=== PATIENT | male | born 1945 | race Caucasian/White ===

== ENCOUNTER 2021-03-02 15:40 | Emergency (ER) | payer OTHER, MEDICARE ==
[~2021-03-02] VITALS: Ht 162.6 cm; Wt 60.1 kg
[2021-03-02] MEDS ORDERED: NORCO, ANEXSIA 5/325MG TABLET (HYDROcodone/ACETAMINOPHEN) PO ONE (17:35)
--- NOTE | 2021-03-02 18:12 | REP ---
INDICATION: fell 3 wks ago/back pain COMPARISON: None. TECHNIQUE: AP, lateral, bilateral oblique, and coned-down views of the lumbar spine. FINDINGS: Evidence for prior laminectomy and posterior fixation at L3-S1. Advanced multilevel degenerative changes are appreciated. No obvious acute fracture/compression injury or subluxation. IMPRESSION: Advanced degenerative changes and prior laminectomy/fixation. No acute fracture/compression injury or subluxation appreciated. <Electronically signed by Delbert Araya > 03/02/21 [id number]
--- NOTE | 2021-03-02 18:13 | REP ---
INDICATION: fell 3 wks ago/hip pain Nontraumatic hip pain. COMPARISON: None. TECHNIQUE: Frontal view of the pelvis with neutral and frog lateral views of the right hip. FINDINGS: Age-related osteopenia and degenerative changes are appreciated. No obvious acute fracture or dislocation identified. IMPRESSION: No acute fracture or dislocation. <Electronically signed by Delbert Araya > 03/02/21 [id number]
[2021-03-02 21:27] LABS: BASO % 0.3 % (0.0-1.0); EOS # 0.3 10^3/uL (0.0-0.5); EOS % 3.7 % (0.0-3.0); HEMOGLOBIN 13.9 g/dl (13.5-17.5); LYMPH # 1.3 10^3/uL (1.5-5.0); LYMPH % 17.2 % (24.0-44.0); MEAN CORPUSCULAR HEMOGLOBIN 29.2 pg (27.0-33.0); MEAN CORPUSCULAR HGB CONC 33.9 g/dl (32.0-36.5); MEAN CORPUSCULAR VOLUME 86.1 fl (80.0-96.0); MONO # 0.6 10^3/uL (0.0-0.8); MONO % 7.6 % (2.0-8.0); NEUTROPHILS # 5.4 10^3/uL (1.5-8.5); NEUTROPHILS % 70.8 % (36.0-66.0); PLATELET COUNT, AUTOMATED 187 10^3/uL (150-450); RED BLOOD COUNT 4.76 10^6/uL (4.30-6.10); WHITE BLOOD COUNT 7.6 10^3/uL (4.0-10.0)
[2021-03-02 21:40] LABS: ALBUMIN 3.4 GM/DL (3.2-5.2); ALT/SGPT 27 U/L (12-78); BILIRUBIN,DIRECT < 0.1 MG/DL (0.0-0.2); BILIRUBIN,TOTAL 0.3 MG/DL (0.2-1.0); BLOOD UREA NITROGEN 14 MG/DL (7-18); CALCIUM LEVEL 9.2 MG/DL (8.8-10.2); CARBON DIOXIDE LEVEL 29 MEQ/L (21-32); CHLORIDE LEVEL 106 MEQ/L (98-107); CREATININE FOR GFR 0.85 MG/DL (0.70-1.30); GLOMERULAR FILTRATION RATE > 60.0 (>42); GLUCOSE, FASTING 118 MG/DL (70-100); LIPASE 304 U/L (73-393); SODIUM LEVEL 139 MEQ/L (136-145); TOTAL PROTEIN 6.5 GM/DL (6.4-8.2)
[2021-03-02 22:22] VITALS: BP 151/89
== END 2021-03-02 22:26 | disposition home or self-care (01) ==
LOC: M ED 15:40
DX: M54.5 Low back pain (principal); M85.851 Other specified disorders of bone density and structure, right thigh; M51.37 Other intervertebral disc degeneration, lumbosacral region; E11.9 Type 2 diabetes mellitus without complications; I10 Essential (primary) hypertension; J45.909 Unspecified asthma, uncomplicated; Z79.899 Other long term (current) drug therapy

== ENCOUNTER → 2021-04-14 | Outpatient (CLI) | payer OTHER ==
[~2021-04-14] MED LIST: ATOR1TAB19 PO; DONE10TA90 PO; ECOT81TA5 PO; FAMO20TA PO; LANTINJ4 SC; LIDO1PAD TOP; LISI40TA4 PO; MELO15TA28 PO; MM S100C PO; QC A650T3 PO; VITMTA PO; ZOLO100T PO
== END ==
LOC: M LABSMTC 11:50
PROVIDERS: ATTEND Anesthesiology
DX: Z01.812 Encounter for preprocedural laboratory examination (principal); Z20.822 Contact with and (suspected) exposure to COVID-19

== ENCOUNTER 2021-04-19 13:19 | Day surgery (SDC) | payer OTHER ==
[~2021-04-19] VITALS: Ht 157.5 cm; Wt 58.2 kg
[~2021-04-19 13:19] MED LIST changes: +LIDOCAINE 1% MDV 20ML VIAL SQ PRN; +LIDOCAINE 2% 100MG/5ML SDV (FOR ANES.) As Ordered ONE; +LR 1,000 ML IV ONE; +propofoL 200 MG/20 ML VIAL As Ordered ONE
[2021-04-19] MEDS ORDERED: propofoL 200 MG/20 ML VIAL As Ordered ONE (14:33)
[2021-04-19] MEDS ORDERED: LIDOCAINE 2% 100MG/5ML SDV (FOR ANES.) As Ordered ONE (14:33)
[2021-04-19] MEDS ORDERED: fentaNYL 100 MCG/2 ML INJECTION (J3010) As Ordered ONE (14:34)
--- NOTE | 2021-04-19 14:57 | ROOR ---
Patient Name: Margarito Chávez Procedure Date: 04/19/2021 2:27 PM Date of : 1945 Age: 75 Room: [facility] Gender: Male Note Status: Finalized Procedure: Upper GI endoscopy Indications: Dysphagia Providers: Taco Messina MD Referring MD: [facility], Admin. Requesting Provider: Medicines: Monitored Anesthesia Care Complications: No immediate complications. Procedure: Pre-Anesthesia Assessment: - Prior to the procedure, a History and Physical was performed, and patient medications and allergies were reviewed. The patient is competent. The risks and benefits of the procedure and the sedation options and risks were discussed with the patient. All questions were answered and informed consent was obtained. Patient identification and proposed procedure were verified by the physician, the nurse and the anesthesiologist in the procedure room. Mental Status Examination: alert and oriented. Airway Examination: normal oropharyngeal airway and neck mobility. Respiratory Examination: clear to auscultation. CV Examination: normal. Prophylactic Antibiotics: The patient does not require prophylactic antibiotics. Prior Anticoagulants: The patient has taken no previous anticoagulant or antiplatelet agents. ASA Grade Assessment: II - A patient with mild systemic disease. After reviewing the risks and benefits, the patient was deemed in satisfactory condition to undergo the procedure. The anesthesia plan was to use monitored anesthesia care (MAC). Immediately prior to administration of medications, the patient was re-assessed for adequacy to receive sedatives. The heart rate, respiratory rate, oxygen saturations, blood pressure, adequacy of pulmonary ventilation, and response to care were monitored throughout the procedure. The physical status of the patient was re-assessed after the procedure. The Endoscope was introduced through the mouth, and advanced to the second part of duodenum. The upper GI endoscopy was accomplished without difficulty. The patient tolerated the procedure well. Findings: LA Grade C (one or more mucosal breaks continuous between tops of 2 or more mucosal folds, less than 75% circumference) esophagitis with no bleeding was found in the lower third of the esophagus. Biopsies were taken with a cold forceps for histology. Verification of patient identification for the specimen was done by the physician and nurse using the patient's name, date and medical record number. Estimated blood loss was minimal. One benign-appearing, intrinsic moderate (circumferential scarring or stenosis; an endoscope may pass) stenosis was found in the lower third of the esophagus. This stenosis measured 1 cm (inner diameter) x 3 cm (in length). The stenosis was traversed. A TTS dilator was passed through the scope. Dilation with a 15-16.5-18 mm balloon dilator was performed to 15 mm. The dilation site was examined following endoscope reinsertion and showed mild mucosal disruption, moderate improvement in luminal narrowing, no bleeding and no perforation. Scattered moderate inflammation characterized by erythema and granularity was found in the gastric antrum. Biopsies were taken with a cold forceps for Helicobacter pylori testing. The duodenal bulb and second portion of the duodenum were normal. Impression: - LA Grade C reflux esophagitis. Rule out Hussein's esophagus. Biopsied. - Benign-appearing esophageal stenosis. Dilated. - Gastritis. Biopsied. - Normal duodenal bulb and second portion of the duodenum. Recommendation: - Patient has a contact number available for emergencies. The signs and symptoms of potential delayed complications were discussed with the patient. Return to normal activities tomorrow. Written discharge instructions were provided to the patient. - Clear liquid diet today, then advance as tolerated to chopped diet and mechanical soft diet. - Continue present medications. - Use Protonix (pantoprazole) 40 mg PO twice daily - to be taken in morning (1/2 hour before breakfast) and at bedtime ( atleast 3 hours after last meal) for 6 weeks. - Use sucralfate suspension 1 gram PO QID for 4 weeks. - Repeat upper endoscopy in 1 year to evaluate the response to therapy, for retreatment and depending on the symptoms and clinical response. - Return to GI clinic if persistent symptoms or new symptoms. - Telephone GI clinic for pathology results in 2 weeks. - Return to primary care physician. Procedure Code(s): --- Professional --- 50151, Esophagogastroduodenoscopy, flexible, transoral; with transendoscopic balloon dilation of esophagus (less than 30 mm diameter) 07327, 59, Esophagogastroduodenoscopy, flexible, transoral; with biopsy, single or multiple Diagnosis Code(s): --- Professional --- K21.0, Gastro-esophageal reflux disease with esophagitis K22.2, Esophageal obstruction K29.70, Gastritis, unspecified, without bleeding R13.10, Dysphagia, unspecified CPT copyright 2019 [employer]. All rights reserved. The codes documented in this report are preliminary and upon bronze chaser review may be revised to meet current compliance requirements. Taco Messina MD Taco Messina MD 04/19/2021 2:57:14 PM Electronically signed by Taco Messina MD Number of Addenda: 0 Note Initiated On: 04/19/2021 2:27 PM Estimated Blood Loss: Estimated blood loss was minimal.
[2021-04-19 15:15] VITALS: BP 137/83
== END 2021-04-19 15:40 | disposition home or self-care (01) ==
LOC: M SDC 13:19
PROVIDERS: ATTEND Internal Medicine Gastroenterology
DX: R13.10 Dysphagia, unspecified (principal); K21.00 Gastro-esophageal reflux disease with esophagitis, without bleeding; K22.2 Esophageal obstruction; K29.70 Gastritis, unspecified, without bleeding; I10 Essential (primary) hypertension; E78.5 Hyperlipidemia, unspecified; Z79.899 Other long term (current) drug therapy; E11.9 Type 2 diabetes mellitus without complications; Z79.4 Long term (current) use of insulin
CPT/HCPCS: 43239; 43249; 88305; J3010

== ENCOUNTER 2021-07-20 00:30 | Emergency (ER) | payer OTHER ==
[~2021-07-20] VITALS: Ht 167.6 cm; Wt 59.1 kg
[~2021-07-20 00:30] MED LIST changes: -LIDOCAINE 1% MDV 20ML VIAL SQ PRN; -LIDOCAINE 2% 100MG/5ML SDV (FOR ANES.) As Ordered ONE; -LR 1,000 ML IV ONE; -propofoL 200 MG/20 ML VIAL As Ordered ONE
[2021-07-20 00:58] VITALS: BP 183/86
== END 2021-07-20 03:12 | disposition home or self-care (01) ==
LOC: M ED 00:30
DX: S01.01XA Laceration without foreign body of scalp, initial encounter (principal); I10 Essential (primary) hypertension; E11.9 Type 2 diabetes mellitus without complications; Z79.899 Other long term (current) drug therapy; Z79.4 Long term (current) use of insulin; Z86.59 Personal history of other mental and behavioral disorders; W00.0XXA Fall on same level due to ice and snow, initial encounter; Y92.009 Unspecified place in unspecified non-institutional (private) residence as the place of occurrence of the external cause; Y93.9 Activity, unspecified; Y99.9 Unspecified external cause status

== ENCOUNTER 2021-11-12 10:31 | Emergency (ER) | payer OTHER ==
[~2021-11-12] VITALS: Ht 170.2 cm; Wt 57.6 kg
[2021-11-12] MEDS ORDERED: BOOSTRIX/ADACEL VACCINE (DIPHTH/PERTUSS/ACELL/TETANUS) 0.5ML SYR IM ONE (11:45)
[2021-11-12] MEDS ORDERED: DERMABOND TOPICAL SKIN ADHESIVE TOP ONE (11:45)
[2021-11-12 13:24] VITALS: BP 160/80
== END 2021-11-12 14:26 | disposition home or self-care (01) ==
LOC: M ED 10:31
DX: S00.01XA Abrasion of scalp, initial encounter (principal); S60.811A Abrasion of right wrist, initial encounter; S01.419A Laceration without foreign body of unspecified cheek and temporomandibular area, initial encounter; S80.212A Abrasion, left knee, initial encounter; R94.31 Abnormal electrocardiogram [ECG] [EKG]; F03.90 Unspecified dementia, unspecified severity, without behavioral disturbance, psychotic disturbance, mood disturbance, and anxiety; I10 Essential (primary) hypertension; J45.909 Unspecified asthma, uncomplicated; E11.9 Type 2 diabetes mellitus without complications; M54.50 Low back pain, unspecified; Y92.009 Unspecified place in unspecified non-institutional (private) residence as the place of occurrence of the external cause; Y93.9 Activity, unspecified; Y99.9 Unspecified external cause status; Z79.811 Long term (current) use of aromatase inhibitors; Z79.4 Long term (current) use of insulin

== ENCOUNTER → 2022-02-17 | Outpatient (CLI) | payer OTHER | LOC: M RAD 10:27 | PROVIDERS: ATTEND Nurse Practitioner Family | DX: E04.1 Nontoxic single thyroid nodule (principal) ==

== ENCOUNTER 2022-05-11 16:23 | Inpatient (IN) | payer OTHER, MEDICAID ==
[~2022-05-11] VITALS: Ht 172.7 cm; Wt 59.1 kg
[2022-05-11 19:03] LABS: HEMATOCRIT 44.2 % (42.0-52.0); HEMOGLOBIN 14.7 g/dl (13.5-17.5); MEAN CORPUSCULAR HEMOGLOBIN 28.2 pg (27.0-33.0); MEAN CORPUSCULAR HGB CONC 33.3 g/dl (32.0-36.5); MEAN CORPUSCULAR VOLUME 84.8 fl (80.0-96.0); PLATELET COUNT, AUTOMATED 215 10^3/uL (150-450); RED BLOOD COUNT 5.21 10^6/uL (4.30-6.10)
[2022-05-11 20:14] LABS: AMPHETAMINES LEVEL URINE NEGATIVE (NEGATIVE); BARBITURATES URINE NEGATIVE (NEGATIVE); BENZODIAZEPINES URINE NEGATIVE (NEGATIVE); CANNABINOIDS URINE NEGATIVE (NEGATIVE); COCAINE METABOLITE URINE NEGATIVE (NEGATIVE); METHADONE URINE NEGATIVE (NEGATIVE); OPIATES URINE NEGATIVE (NEGATIVE); PHENCYCLIDINE URINE NEGATIVE (NEGATIVE)
[2022-05-11] MEDS ORDERED: HOME MED LIST COMPLETE! XX SCH (20:20)
[2022-05-11 20:30] LABS: ACETAMINOPHEN LEVEL < 2.0 UG/ML (10.0-30.0); ALBUMIN 4.2 GM/DL (3.2-5.2); ALKALINE PHOSPHATASE 205 U/L (45-117); ALT/SGPT 28 U/L (12-78); AST/SGOT 17 U/L (7-37); BILIRUBIN,DIRECT 0.1 MG/DL (0.0-0.2); BILIRUBIN,TOTAL 0.4 MG/DL (0.2-1.0); BLOOD UREA NITROGEN 18 MG/DL (7-18); CALCIUM LEVEL 10.2 MG/DL (8.8-10.2); CARBON DIOXIDE LEVEL 28 MEQ/L (21-32); CHLORIDE LEVEL 100 MEQ/L (98-107); CREATININE FOR GFR 1.04 MG/DL (0.70-1.30); ETHYL ALCOHOL (ETHANOL) 0.003 % (0.000-0.010); GLOMERULAR FILTRATION RATE > 60.0 (>42); GLUCOSE, FASTING 241 MG/DL (70-100); SALICYLATE LEVEL < 1.7 MG/DL (5.0-30.0); SODIUM LEVEL 135 MEQ/L (136-145)
[2022-05-11 22:28] LABS: RSV AMPLIFICATION NEGATIVE (NEGATIVE)
[2022-05-11 22:30] LABS: CK-MB VALUE MASS 2.2 NG/ML (<3.6); MB/CK RELATIVE INDEX 3.19 (< OR =4)
[2022-05-12] MEDS ORDERED: GLUCAGON INJ 1MG VIAL SC PRN (02:10)
[2022-05-12] MEDS ORDERED: GLUCOSE 4GM CHEW TABLET PO PRN (02:10)
[2022-05-12] MEDS ORDERED: DEXTROSE 50% 50 ML SYRINGE IV PRN (02:10)
[2022-05-12 03:29] LABS: HEMOGLOBIN A1c 9.9 %
[2022-05-12] MEDS: INSULIN LISPRO (NovoLOG) PER UNIT SC SCH ×4 (07:30→20:21)
[2022-05-12 07:47] LABS: HEMATOCRIT 42.2 % (42.0-52.0); HEMOGLOBIN 13.9 g/dl (13.5-17.5); MEAN CORPUSCULAR HEMOGLOBIN 28.3 pg (27.0-33.0); MEAN CORPUSCULAR HGB CONC 32.9 g/dl (32.0-36.5); MEAN CORPUSCULAR VOLUME 85.8 fl (80.0-96.0); PLATELET COUNT, AUTOMATED 177 10^3/uL (150-450); RED BLOOD COUNT 4.92 10^6/uL (4.30-6.10); WHITE BLOOD COUNT 6.7 10^3/uL (4.0-10.0)
[2022-05-12] MEDS ORDERED: lisinopriL 40MG TAB PO ONE (08:15)
[2022-05-12 08:22] LABS: BLOOD UREA NITROGEN 19 MG/DL (7-18); CALCIUM LEVEL 9.3 MG/DL (8.8-10.2); CARBON DIOXIDE LEVEL 30 MEQ/L (21-32); CHLORIDE LEVEL 104 MEQ/L (98-107); CREATININE FOR GFR 1.05 MG/DL (0.70-1.30); GLOMERULAR FILTRATION RATE > 60.0 (>42); GLUCOSE, FASTING 84 MG/DL (70-100); POTASSIUM SERUM 4.2 MEQ/L (3.5-5.1); SODIUM LEVEL 138 MEQ/L (136-145)
[2022-05-12] MEDS: LEVEMIR (INSULIN DETEMIR) 1 UNITS/0.01ML SC SCH (08:30)
[2022-05-12] MEDS: DOCUSATE SODIUM 100MG CAPSULE PO SCH ×2 (08:30→19:51)
[2022-05-12] MEDS: MELOXICAM (MOBIC) 7.5 MG TAB PO SCH (08:30)
[2022-05-12] MEDS: MULTIVITAMINS/MINERALS THERAP 1 TAB PO SCH (08:30)
[2022-05-12] MEDS: SERTRALINE 100 MG TAB PO SCH (08:30)
[2022-05-12] MEDS: ASPIRIN 81MG ENTERIC TABLET PO SCH (08:31)
[2022-05-12] MEDS: ATORVASTATIN 10 MG TAB PO SCH (08:31)
[2022-05-12] MEDS: FAMOTIDINE 20 MG TAB PO SCH (08:31)
[2022-05-12] MEDS ORDERED: lisinopriL 40MG TAB PO SCH (09:00)
[2022-05-12 11:58] LABS: MAGNESIUM LEVEL 1.9 MG/DL (1.8-2.4)
[2022-05-12 14:00] VITALS: BP 112/80
[2022-05-12] MEDS: DONEPEZIL 5 MG TAB PO SCH (14:01)
[2022-05-12 18:25] LABS: FOLATE > 24.0 NG/ML (>5.4); VITAMIN B12 LEVEL 723 PG/ML (247-911)
[2022-05-12] MEDS ORDERED: QUEtiapine FUMARATE 12.5 MG HALF-TAB PO ONE (19:30)
[2022-05-12] MEDS: RAMELTEON 8 MG TAB (ROZEREM) PO PRN (19:51)
[2022-05-12 20:11] VITALS: BP 115/78
[2022-05-13 06:39] VITALS: BP 102/65
[2022-05-13] MEDS: INSULIN LISPRO (NovoLOG) PER UNIT SC SCH ×6 (07:30→19:58)
[2022-05-13 07:43] LABS: HEMATOCRIT 37.1 % (42.0-52.0); HEMOGLOBIN 12.4 g/dl (13.5-17.5); MEAN CORPUSCULAR HEMOGLOBIN 28.2 pg (27.0-33.0); MEAN CORPUSCULAR HGB CONC 33.4 g/dl (32.0-36.5); MEAN CORPUSCULAR VOLUME 84.5 fl (80.0-96.0); PLATELET COUNT, AUTOMATED 165 10^3/uL (150-450); RED BLOOD COUNT 4.39 10^6/uL (4.30-6.10)
[2022-05-13] MEDS ORDERED: QUEtiapine FUMARATE 12.5 MG HALF-TAB PO PRN (07:45)
[2022-05-13 07:55] LABS: BLOOD UREA NITROGEN 32 MG/DL (7-18); CALCIUM LEVEL 8.6 MG/DL (8.8-10.2); CARBON DIOXIDE LEVEL 26 MEQ/L (21-32); CHLORIDE LEVEL 107 MEQ/L (98-107); CREATININE FOR GFR 1.23 MG/DL (0.70-1.30); GLOMERULAR FILTRATION RATE > 60.0 (>42); GLUCOSE, FASTING 93 MG/DL (70-100); MAGNESIUM LEVEL 1.8 MG/DL (1.8-2.4); POTASSIUM SERUM 4.1 MEQ/L (3.5-5.1); SODIUM LEVEL 140 MEQ/L (136-145)
[2022-05-13] MEDS: LEVEMIR (INSULIN DETEMIR) 1 UNITS/0.01ML SC SCH (09:42)
[2022-05-13] MEDS: ASPIRIN 81MG ENTERIC TABLET PO SCH (09:43)
[2022-05-13] MEDS: SERTRALINE 100 MG TAB PO SCH (09:43)
[2022-05-13] MEDS: MELOXICAM (MOBIC) 7.5 MG TAB PO SCH (09:43)
[2022-05-13] MEDS: DONEPEZIL 5 MG TAB PO SCH (09:43)
[2022-05-13] MEDS: MULTIVITAMINS/MINERALS THERAP 1 TAB PO SCH (09:43)
[2022-05-13] MEDS: FAMOTIDINE 20 MG TAB PO SCH (09:43)
[2022-05-13] MEDS: ATORVASTATIN 10 MG TAB PO SCH (09:43)
[2022-05-13] MEDS: lisinopriL 40MG TAB PO SCH (09:43)
[2022-05-13] MEDS: DOCUSATE SODIUM 100MG CAPSULE PO SCH ×2 (09:43→19:21)
[2022-05-13 14:00] VITALS: BP 131/70
[2022-05-13] MEDS: RAMELTEON 8 MG TAB (ROZEREM) PO PRN (19:21)
[2022-05-13] MEDS: QUEtiapine FUMARATE 12.5 MG HALF-TAB PO PRN (19:21)
[2022-05-13 19:43] VITALS: BP 124/63
[2022-05-14 05:49] VITALS: BP 136/80
[2022-05-14 07:03] LABS: HEMATOCRIT 36.4 % (42.0-52.0); HEMOGLOBIN 11.8 g/dl (13.5-17.5); MEAN CORPUSCULAR HGB CONC 32.4 g/dl (32.0-36.5); MEAN CORPUSCULAR VOLUME 86.3 fl (80.0-96.0); PLATELET COUNT, AUTOMATED 151 10^3/uL (150-450); RED BLOOD COUNT 4.22 10^6/uL (4.30-6.10); WHITE BLOOD COUNT 5.9 10^3/uL (4.0-10.0)
[2022-05-14] MEDS: INSULIN LISPRO (NovoLOG) PER UNIT SC SCH ×4 (07:30→20:16)
[2022-05-14 07:38] LABS: BLOOD UREA NITROGEN 28 MG/DL (7-18); CALCIUM LEVEL 8.8 MG/DL (8.8-10.2); CARBON DIOXIDE LEVEL 25 MEQ/L (21-32); CHLORIDE LEVEL 110 MEQ/L (98-107); CREATININE FOR GFR 0.91 MG/DL (0.70-1.30); GLOMERULAR FILTRATION RATE > 60.0 (>42); GLUCOSE, FASTING 96 MG/DL (70-100); MAGNESIUM LEVEL 1.9 MG/DL (1.8-2.4); POTASSIUM SERUM 4.2 MEQ/L (3.5-5.1); SODIUM LEVEL 141 MEQ/L (136-145)
[2022-05-14] MEDS: ATORVASTATIN 10 MG TAB PO SCH (09:00)
[2022-05-14] MEDS: MELOXICAM (MOBIC) 7.5 MG TAB PO SCH (09:00)
[2022-05-14] MEDS: LEVEMIR (INSULIN DETEMIR) 1 UNITS/0.01ML SC SCH (09:00)
[2022-05-14] MEDS: SERTRALINE 100 MG TAB PO SCH (09:00)
[2022-05-14] MEDS: DONEPEZIL 5 MG TAB PO SCH (09:00)
[2022-05-14] MEDS: FAMOTIDINE 20 MG TAB PO SCH (09:00)
[2022-05-14] MEDS: MULTIVITAMINS/MINERALS THERAP 1 TAB PO SCH (09:00)
[2022-05-14] MEDS: DOCUSATE SODIUM 100MG CAPSULE PO SCH ×2 (09:00→20:14)
[2022-05-14] MEDS: lisinopriL 40MG TAB PO SCH ×2 (09:00→16:38)
[2022-05-14] MEDS: ASPIRIN 81MG ENTERIC TABLET PO SCH (09:00)
[2022-05-14 14:00] VITALS: BP 180/92
[2022-05-14] MEDS: QUEtiapine FUMARATE 12.5 MG HALF-TAB PO PRN (20:14)
[2022-05-14] MEDS: RAMELTEON 8 MG TAB (ROZEREM) PO PRN (20:14)
[2022-05-14 20:17] VITALS: BP 154/94
[2022-05-15 06:25] LABS: HEMATOCRIT 37.2 % (42.0-52.0); HEMOGLOBIN 12.4 g/dl (13.5-17.5); MEAN CORPUSCULAR HEMOGLOBIN 28.1 pg (27.0-33.0); MEAN CORPUSCULAR HGB CONC 33.3 g/dl (32.0-36.5); MEAN CORPUSCULAR VOLUME 84.4 fl (80.0-96.0); PLATELET COUNT, AUTOMATED 158 10^3/uL (150-450); RED BLOOD COUNT 4.41 10^6/uL (4.30-6.10)
[2022-05-15 06:35] VITALS: BP 168/84
[2022-05-15 07:00] LABS: BLOOD UREA NITROGEN 21 MG/DL (7-18); CALCIUM LEVEL 9.2 MG/DL (8.8-10.2); CARBON DIOXIDE LEVEL 24 MEQ/L (21-32); CHLORIDE LEVEL 107 MEQ/L (98-107); CREATININE FOR GFR 1.02 MG/DL (0.70-1.30); GLOMERULAR FILTRATION RATE > 60.0 (>42); GLUCOSE, FASTING 206 MG/DL (70-100); MAGNESIUM LEVEL 1.9 MG/DL (1.8-2.4); POTASSIUM SERUM 4.4 MEQ/L (3.5-5.1); SODIUM LEVEL 137 MEQ/L (136-145)
[2022-05-15] MEDS: FAMOTIDINE 20 MG TAB PO SCH (08:21)
[2022-05-15] MEDS: ATORVASTATIN 10 MG TAB PO SCH (08:21)
[2022-05-15] MEDS: lisinopriL 40MG TAB PO SCH (08:21)
[2022-05-15] MEDS: DOCUSATE SODIUM 100MG CAPSULE PO SCH ×2 (08:21→19:50)
[2022-05-15] MEDS: MELOXICAM (MOBIC) 7.5 MG TAB PO SCH (08:21)
[2022-05-15] MEDS: INSULIN LISPRO (NovoLOG) PER UNIT SC SCH ×4 (08:21→21:00)
[2022-05-15] MEDS: SERTRALINE 100 MG TAB PO SCH (08:21)
[2022-05-15] MEDS: DONEPEZIL 5 MG TAB PO SCH (08:22)
[2022-05-15] MEDS: MULTIVITAMINS/MINERALS THERAP 1 TAB PO SCH (08:22)
[2022-05-15] MEDS: ASPIRIN 81MG ENTERIC TABLET PO SCH (08:22)
[2022-05-15] MEDS: LEVEMIR (INSULIN DETEMIR) 1 UNITS/0.01ML SC SCH (08:22)
[2022-05-15] MEDS: ACETAMINOPHEN 650MG ER TAB (TYLENOL ARTHRITIS) PO PRN (19:50)
[2022-05-15] MEDS: RAMELTEON 8 MG TAB (ROZEREM) PO PRN (19:50)
[2022-05-15] MEDS: QUEtiapine FUMARATE 12.5 MG HALF-TAB PO PRN (19:50)
[2022-05-16 05:49] VITALS: BP 166/84
[2022-05-16 07:40] LABS: HEMOGLOBIN 12.4 g/dl (13.5-17.5); MEAN CORPUSCULAR HEMOGLOBIN 28.1 pg (27.0-33.0); MEAN CORPUSCULAR HGB CONC 32.6 g/dl (32.0-36.5); PLATELET COUNT, AUTOMATED 164 10^3/uL (150-450); RED BLOOD COUNT 4.42 10^6/uL (4.30-6.10)
[2022-05-16 08:35] LABS: BLOOD UREA NITROGEN 21 MG/DL (7-18); CALCIUM LEVEL 9.2 MG/DL (8.8-10.2); CARBON DIOXIDE LEVEL 28 MEQ/L (21-32); CHLORIDE LEVEL 107 MEQ/L (98-107); CREATININE FOR GFR 0.96 MG/DL (0.70-1.30); GLOMERULAR FILTRATION RATE > 60.0 (>42); GLUCOSE, FASTING 126 MG/DL (70-100); POTASSIUM SERUM 4.5 MEQ/L (3.5-5.1); SODIUM LEVEL 138 MEQ/L (136-145)
[2022-05-16] MEDS: DOCUSATE SODIUM 100MG CAPSULE PO SCH ×2 (08:48→20:43)
[2022-05-16] MEDS: INSULIN LISPRO (NovoLOG) PER UNIT SC SCH ×4 (08:48→21:00)
[2022-05-16] MEDS: LEVEMIR (INSULIN DETEMIR) 1 UNITS/0.01ML SC SCH (08:48)
[2022-05-16] MEDS: FAMOTIDINE 20 MG TAB PO SCH (08:49)
[2022-05-16] MEDS: lisinopriL 40MG TAB PO SCH (08:49)
[2022-05-16] MEDS: MULTIVITAMINS/MINERALS THERAP 1 TAB PO SCH (08:49)
[2022-05-16] MEDS: DONEPEZIL 5 MG TAB PO SCH (08:49)
[2022-05-16] MEDS: MELOXICAM (MOBIC) 7.5 MG TAB PO SCH (08:50)
[2022-05-16] MEDS: ATORVASTATIN 10 MG TAB PO SCH (08:50)
[2022-05-16] MEDS: ASPIRIN 81MG ENTERIC TABLET PO SCH (08:50)
[2022-05-16] MEDS: SERTRALINE 100 MG TAB PO SCH (08:51)
[2022-05-16] MEDS: ACETAMINOPHEN 650MG ER TAB (TYLENOL ARTHRITIS) PO PRN (20:43)
[2022-05-16] MEDS: QUEtiapine FUMARATE 12.5 MG HALF-TAB PO PRN (20:44)
[2022-05-16] MEDS: RAMELTEON 8 MG TAB (ROZEREM) PO PRN (20:44)
[2022-05-17 06:00] VITALS: BP 147/79
[2022-05-17 06:12] LABS: HEMATOCRIT 39.6 % (42.0-52.0); HEMOGLOBIN 13.1 g/dl (13.5-17.5); MEAN CORPUSCULAR HEMOGLOBIN 28.3 pg (27.0-33.0); MEAN CORPUSCULAR HGB CONC 33.1 g/dl (32.0-36.5); MEAN CORPUSCULAR VOLUME 85.5 fl (80.0-96.0); PLATELET COUNT, AUTOMATED 163 10^3/uL (150-450); RED BLOOD COUNT 4.63 10^6/uL (4.30-6.10); WHITE BLOOD COUNT 6.2 10^3/uL (4.0-10.0)
[2022-05-17 07:19] LABS: BLOOD UREA NITROGEN 21 MG/DL (7-18); CARBON DIOXIDE LEVEL 28 MEQ/L (21-32); CHLORIDE LEVEL 106 MEQ/L (98-107); CREATININE FOR GFR 0.99 MG/DL (0.70-1.30); GLOMERULAR FILTRATION RATE > 60.0 (>42); GLUCOSE, FASTING 116 MG/DL (70-100); MAGNESIUM LEVEL 1.9 MG/DL (1.8-2.4); POTASSIUM SERUM 4.3 MEQ/L (3.5-5.1); SODIUM LEVEL 141 MEQ/L (136-145)
[2022-05-17] MEDS: INSULIN LISPRO (NovoLOG) PER UNIT SC SCH ×4 (08:57→20:54)
[2022-05-17] MEDS: LEVEMIR (INSULIN DETEMIR) 1 UNITS/0.01ML SC SCH (08:58)
[2022-05-17] MEDS: ASPIRIN 81MG ENTERIC TABLET PO SCH (08:59)
[2022-05-17] MEDS: MELOXICAM (MOBIC) 7.5 MG TAB PO SCH (08:59)
[2022-05-17] MEDS: ATORVASTATIN 10 MG TAB PO SCH (08:59)
[2022-05-17] MEDS: DONEPEZIL 5 MG TAB PO SCH (08:59)
[2022-05-17] MEDS: MULTIVITAMINS/MINERALS THERAP 1 TAB PO SCH (08:59)
[2022-05-17] MEDS: FAMOTIDINE 20 MG TAB PO SCH (08:59)
[2022-05-17] MEDS: lisinopriL 40MG TAB PO SCH (08:59)
[2022-05-17] MEDS: DOCUSATE SODIUM 100MG CAPSULE PO SCH ×2 (08:59→20:09)
[2022-05-17] MEDS: SERTRALINE 100 MG TAB PO SCH (08:59)
[2022-05-17] MEDS: ACETAMINOPHEN 650MG ER TAB (TYLENOL ARTHRITIS) PO PRN (20:09)
[2022-05-17] MEDS: RAMELTEON 8 MG TAB (ROZEREM) PO PRN (20:09)
[2022-05-17] MEDS: QUEtiapine FUMARATE 12.5 MG HALF-TAB PO PRN (20:09)
[2022-05-18 06:00] VITALS: BP 149/70
[2022-05-18 06:13] LABS: HEMATOCRIT 42.2 % (42.0-52.0); HEMOGLOBIN 13.5 g/dl (13.5-17.5); MEAN CORPUSCULAR HEMOGLOBIN 27.7 pg (27.0-33.0); MEAN CORPUSCULAR VOLUME 86.7 fl (80.0-96.0); PLATELET COUNT, AUTOMATED 176 10^3/uL (150-450); RED BLOOD COUNT 4.87 10^6/uL (4.30-6.10); WHITE BLOOD COUNT 6.7 10^3/uL (4.0-10.0)
[2022-05-18 06:59] LABS: BLOOD UREA NITROGEN 23 MG/DL (7-18); CALCIUM LEVEL 9.1 MG/DL (8.8-10.2); CARBON DIOXIDE LEVEL 26 MEQ/L (21-32); CHLORIDE LEVEL 105 MEQ/L (98-107); CREATININE FOR GFR 0.98 MG/DL (0.70-1.30); GLOMERULAR FILTRATION RATE > 60.0 (>42); GLUCOSE, FASTING 128 MG/DL (70-100); POTASSIUM SERUM 4.6 MEQ/L (3.5-5.1); SODIUM LEVEL 139 MEQ/L (136-145)
[2022-05-18] MEDS: INSULIN LISPRO (NovoLOG) PER UNIT SC SCH ×4 (08:44→21:00)
[2022-05-18] MEDS: LEVEMIR (INSULIN DETEMIR) 1 UNITS/0.01ML SC SCH (08:44)
[2022-05-18] MEDS: FAMOTIDINE 20 MG TAB PO SCH (08:45)
[2022-05-18] MEDS: SERTRALINE 100 MG TAB PO SCH (08:45)
[2022-05-18] MEDS: DOCUSATE SODIUM 100MG CAPSULE PO SCH ×2 (08:45→20:11)
[2022-05-18] MEDS: ATORVASTATIN 10 MG TAB PO SCH (08:45)
[2022-05-18] MEDS: MULTIVITAMINS/MINERALS THERAP 1 TAB PO SCH (08:45)
[2022-05-18] MEDS: MELOXICAM (MOBIC) 7.5 MG TAB PO SCH (08:45)
[2022-05-18] MEDS: lisinopriL 40MG TAB PO SCH (08:45)
[2022-05-18] MEDS: ASPIRIN 81MG ENTERIC TABLET PO SCH (08:45)
[2022-05-18] MEDS: DONEPEZIL 5 MG TAB PO SCH (08:45)
[2022-05-18] MEDS: RAMELTEON 8 MG TAB (ROZEREM) PO PRN (20:11)
[2022-05-18] MEDS: QUEtiapine FUMARATE 12.5 MG HALF-TAB PO PRN (20:12)
[2022-05-19 06:00] VITALS: BP 157/91
[2022-05-19 06:04] LABS: HEMATOCRIT 36.4 % (42.0-52.0); HEMOGLOBIN 11.8 g/dl (13.5-17.5); MEAN CORPUSCULAR HEMOGLOBIN 27.7 pg (27.0-33.0); MEAN CORPUSCULAR HGB CONC 32.4 g/dl (32.0-36.5); MEAN CORPUSCULAR VOLUME 85.4 fl (80.0-96.0); PLATELET COUNT, AUTOMATED 162 10^3/uL (150-450); RED BLOOD COUNT 4.26 10^6/uL (4.30-6.10); WHITE BLOOD COUNT 6.2 10^3/uL (4.0-10.0)
[2022-05-19 06:36] LABS: BLOOD UREA NITROGEN 24 MG/DL (7-18); CALCIUM LEVEL 8.7 MG/DL (8.8-10.2); CARBON DIOXIDE LEVEL 29 MEQ/L (21-32); CHLORIDE LEVEL 107 MEQ/L (98-107); CREATININE FOR GFR 1.06 MG/DL (0.70-1.30); GLOMERULAR FILTRATION RATE > 60.0 (>42); GLUCOSE, FASTING 104 MG/DL (70-100); MAGNESIUM LEVEL 1.9 MG/DL (1.8-2.4); SODIUM LEVEL 140 MEQ/L (136-145)
[2022-05-19] MEDS: INSULIN LISPRO (NovoLOG) PER UNIT SC SCH ×4 (07:26→20:28)
[2022-05-19 08:38] VITALS: BP 130/72
[2022-05-19] MEDS: ATORVASTATIN 10 MG TAB PO SCH (09:58)
[2022-05-19] MEDS: DONEPEZIL 5 MG TAB PO SCH (09:59)
[2022-05-19] MEDS: MULTIVITAMINS/MINERALS THERAP 1 TAB PO SCH (09:59)
[2022-05-19] MEDS: DOCUSATE SODIUM 100MG CAPSULE PO SCH ×2 (09:59→20:02)
[2022-05-19] MEDS: ASPIRIN 81MG ENTERIC TABLET PO SCH (10:00)
[2022-05-19] MEDS: FAMOTIDINE 20 MG TAB PO SCH (10:00)
[2022-05-19] MEDS: MELOXICAM (MOBIC) 7.5 MG TAB PO SCH (10:00)
[2022-05-19] MEDS: SERTRALINE 100 MG TAB PO SCH (10:00)
[2022-05-19] MEDS: lisinopriL 40MG TAB PO SCH (10:00)
[2022-05-19] MEDS: LEVEMIR (INSULIN DETEMIR) 1 UNITS/0.01ML SC SCH (10:01)
[2022-05-19 13:38] VITALS: BP 142/85
[2022-05-19 14:02] LABS: FERRITIN 128 NG/ML (26-388); IRON (FE) 58 UG/DL (65-175); PERCENT SATURATION 21.6 % (19.7-50.0); TOTAL IRON BINDING CAPACITY 269 UG/DL (250-450)
[2022-05-19 14:35] LABS: VITAMIN B12 LEVEL 636 PG/ML (247-911)
[2022-05-19 14:36] LABS: FOLATE 21.4 NG/ML (>5.4)
[2022-05-19] MEDS: LIDOCAINE 5% (LIDODERM) PATCH TD SCH (15:49)
[2022-05-19] MEDS ORDERED: PANTOPRAZOLE 40MG TAB (PROTONIX) PO SCH (16:00)
[2022-05-19] MEDS: PANTOPRAZOLE 40MG TAB (PROTONIX) PO SCH (20:02)
[2022-05-19] MEDS: QUEtiapine FUMARATE 12.5 MG HALF-TAB PO PRN (20:02)
[2022-05-19] MEDS: RAMELTEON 8 MG TAB (ROZEREM) PO PRN (20:02)
[2022-05-19] MEDS: ACETAMINOPHEN 650MG ER TAB (TYLENOL ARTHRITIS) PO PRN (20:03)
[2022-05-20 06:00] VITALS: BP 138/81
[2022-05-20 06:13] LABS: HEMATOCRIT 36.1 % (42.0-52.0); HEMOGLOBIN 11.9 g/dl (13.5-17.5); MEAN CORPUSCULAR HEMOGLOBIN 27.9 pg (27.0-33.0); MEAN CORPUSCULAR VOLUME 84.5 fl (80.0-96.0); PLATELET COUNT, AUTOMATED 177 10^3/uL (150-450); RED BLOOD COUNT 4.27 10^6/uL (4.30-6.10); WHITE BLOOD COUNT 6.5 10^3/uL (4.0-10.0)
[2022-05-20 06:44] LABS: BLOOD UREA NITROGEN 24 MG/DL (7-18); CALCIUM LEVEL 8.9 MG/DL (8.8-10.2); CARBON DIOXIDE LEVEL 28 MEQ/L (21-32); CHLORIDE LEVEL 108 MEQ/L (98-107); CREATININE FOR GFR 0.97 MG/DL (0.70-1.30); GLOMERULAR FILTRATION RATE > 60.0 (>42); GLUCOSE, FASTING 104 MG/DL (70-100); MAGNESIUM LEVEL 1.9 MG/DL (1.8-2.4); POTASSIUM SERUM 4.2 MEQ/L (3.5-5.1); SODIUM LEVEL 142 MEQ/L (136-145)
[2022-05-20] MEDS: INSULIN LISPRO (NovoLOG) PER UNIT SC SCH ×4 (07:30→21:00)
[2022-05-20] MEDS: LEVEMIR (INSULIN DETEMIR) 1 UNITS/0.01ML SC SCH (09:00)
[2022-05-20] MEDS: SERTRALINE 100 MG TAB PO SCH (09:47)
[2022-05-20] MEDS: DOCUSATE SODIUM 100MG CAPSULE PO SCH ×2 (09:47→20:23)
[2022-05-20] MEDS: ATORVASTATIN 10 MG TAB PO SCH (09:47)
[2022-05-20] MEDS: ASPIRIN 81MG ENTERIC TABLET PO SCH (09:47)
[2022-05-20] MEDS: MULTIVITAMINS/MINERALS THERAP 1 TAB PO SCH (09:47)
[2022-05-20] MEDS: lisinopriL 40MG TAB PO SCH (09:48)
[2022-05-20] MEDS: LIDOCAINE 5% (LIDODERM) PATCH TD SCH (09:48)
[2022-05-20] MEDS: DONEPEZIL 5 MG TAB PO SCH (09:48)
[2022-05-20 09:50] VITALS: BP 150/88
[2022-05-20] MEDS: PANTOPRAZOLE 40MG TAB (PROTONIX) PO SCH (20:23)
[2022-05-20] MEDS: RAMELTEON 8 MG TAB (ROZEREM) PO PRN (20:28)
[2022-05-20] MEDS: ACETAMINOPHEN 650MG ER TAB (TYLENOL ARTHRITIS) PO PRN (20:28)
[2022-05-21 06:00] VITALS: BP 145/90
[2022-05-21] MEDS: SERTRALINE 100 MG TAB PO SCH (08:14)
[2022-05-21] MEDS: DOCUSATE SODIUM 100MG CAPSULE PO SCH ×2 (08:14→20:11)
[2022-05-21] MEDS: ATORVASTATIN 10 MG TAB PO SCH (08:14)
[2022-05-21] MEDS: MULTIVITAMINS/MINERALS THERAP 1 TAB PO SCH (08:14)
[2022-05-21] MEDS: ASPIRIN 81MG ENTERIC TABLET PO SCH (08:14)
[2022-05-21] MEDS: DONEPEZIL 5 MG TAB PO SCH (08:15)
[2022-05-21] MEDS: LIDOCAINE 5% (LIDODERM) PATCH TD SCH ×2 (08:15→09:00)
[2022-05-21] MEDS: LEVEMIR (INSULIN DETEMIR) 1 UNITS/0.01ML SC SCH (08:15)
[2022-05-21] MEDS: lisinopriL 40MG TAB PO SCH (08:15)
[2022-05-21] MEDS: INSULIN LISPRO (NovoLOG) PER UNIT SC SCH ×4 (08:25→20:11)
[2022-05-21] MEDS: ACETAMINOPHEN 650MG ER TAB (TYLENOL ARTHRITIS) PO PRN (15:24)
[2022-05-21] MEDS: PANTOPRAZOLE 40MG TAB (PROTONIX) PO SCH (20:11)
[2022-05-22 06:00] VITALS: BP 145/87
[2022-05-22] MEDS: LEVEMIR (INSULIN DETEMIR) 1 UNITS/0.01ML SC SCH (08:05)
[2022-05-22] MEDS: INSULIN LISPRO (NovoLOG) PER UNIT SC SCH ×4 (08:05→21:00)
[2022-05-22] MEDS: ASPIRIN 81MG ENTERIC TABLET PO SCH (08:06)
[2022-05-22] MEDS: DOCUSATE SODIUM 100MG CAPSULE PO SCH ×2 (08:06→19:44)
[2022-05-22] MEDS: SERTRALINE 100 MG TAB PO SCH (08:06)
[2022-05-22] MEDS: lisinopriL 40MG TAB PO SCH (08:06)
[2022-05-22] MEDS: MULTIVITAMINS/MINERALS THERAP 1 TAB PO SCH (08:06)
[2022-05-22] MEDS: DONEPEZIL 5 MG TAB PO SCH (08:06)
[2022-05-22] MEDS: ATORVASTATIN 10 MG TAB PO SCH (08:06)
[2022-05-22] MEDS: LIDOCAINE 5% (LIDODERM) PATCH TD SCH ×2 (08:06→08:13)
[2022-05-22] MEDS: RAMELTEON 8 MG TAB (ROZEREM) PO PRN (19:43)
[2022-05-22] MEDS: PANTOPRAZOLE 40MG TAB (PROTONIX) PO SCH (19:43)
[2022-05-22] MEDS: ACETAMINOPHEN 650MG ER TAB (TYLENOL ARTHRITIS) PO PRN (19:44)
[2022-05-22] MEDS: QUEtiapine FUMARATE 12.5 MG HALF-TAB PO PRN (21:31)
[2022-05-23 06:00] VITALS: BP 147/87
[2022-05-23] MEDS: MULTIVITAMINS/MINERALS THERAP 1 TAB PO SCH (08:57)
[2022-05-23] MEDS: LEVEMIR (INSULIN DETEMIR) 1 UNITS/0.01ML SC SCH (08:57)
[2022-05-23] MEDS: DOCUSATE SODIUM 100MG CAPSULE PO SCH ×2 (08:57→19:21)
[2022-05-23] MEDS: LIDOCAINE 5% (LIDODERM) PATCH TD SCH (08:57)
[2022-05-23] MEDS: INSULIN LISPRO (NovoLOG) PER UNIT SC SCH ×4 (08:57→20:43)
[2022-05-23] MEDS: ASPIRIN 81MG ENTERIC TABLET PO SCH (08:58)
[2022-05-23] MEDS: lisinopriL 40MG TAB PO SCH (08:58)
[2022-05-23] MEDS: ATORVASTATIN 10 MG TAB PO SCH (08:58)
[2022-05-23] MEDS: SERTRALINE 100 MG TAB PO SCH (08:58)
[2022-05-23] MEDS: DONEPEZIL 5 MG TAB PO SCH (08:58)
[2022-05-23] MEDS: PANTOPRAZOLE 40MG TAB (PROTONIX) PO SCH (19:21)
[2022-05-23] MEDS: ACETAMINOPHEN 650MG ER TAB (TYLENOL ARTHRITIS) PO PRN (19:21)
[2022-05-23] MEDS: RAMELTEON 8 MG TAB (ROZEREM) PO PRN (19:21)
[2022-05-23] MEDS: QUEtiapine FUMARATE 12.5 MG HALF-TAB PO PRN (19:21)
[2022-05-24 06:00] VITALS: BP 112/73
[2022-05-24] MEDS: INSULIN LISPRO (NovoLOG) PER UNIT SC SCH ×4 (07:30→19:31)
[2022-05-24] MEDS: LEVEMIR (INSULIN DETEMIR) 1 UNITS/0.01ML SC SCH (09:00)
[2022-05-24] MEDS: DONEPEZIL 5 MG TAB PO SCH (09:07)
[2022-05-24] MEDS: LIDOCAINE 5% (LIDODERM) PATCH TD SCH (09:07)
[2022-05-24] MEDS: SERTRALINE 100 MG TAB PO SCH (09:07)
[2022-05-24] MEDS: MULTIVITAMINS/MINERALS THERAP 1 TAB PO SCH (09:07)
[2022-05-24] MEDS: ATORVASTATIN 10 MG TAB PO SCH (09:07)
[2022-05-24] MEDS: lisinopriL 40MG TAB PO SCH (09:07)
[2022-05-24] MEDS: ASPIRIN 81MG ENTERIC TABLET PO SCH (09:07)
[2022-05-24] MEDS: DOCUSATE SODIUM 100MG CAPSULE PO SCH ×2 (09:07→19:21)
[2022-05-24] MEDS: ACETAMINOPHEN 650MG ER TAB (TYLENOL ARTHRITIS) PO PRN (17:25)
[2022-05-24] MEDS: RAMELTEON 8 MG TAB (ROZEREM) PO PRN (19:21)
[2022-05-24] MEDS: PANTOPRAZOLE 40MG TAB (PROTONIX) PO SCH (19:21)
[2022-05-24] MEDS: QUEtiapine FUMARATE 12.5 MG HALF-TAB PO PRN (19:21)
[2022-05-25 06:00] VITALS: BP 130/71
[2022-05-25] MEDS: DONEPEZIL 5 MG TAB PO SCH (08:17)
[2022-05-25] MEDS: ASPIRIN 81MG ENTERIC TABLET PO SCH (08:17)
[2022-05-25] MEDS: ATORVASTATIN 10 MG TAB PO SCH (08:17)
[2022-05-25] MEDS: MULTIVITAMINS/MINERALS THERAP 1 TAB PO SCH (08:17)
[2022-05-25] MEDS: lisinopriL 40MG TAB PO SCH (08:17)
[2022-05-25] MEDS: DOCUSATE SODIUM 100MG CAPSULE PO SCH ×2 (08:17→20:51)
[2022-05-25] MEDS: ACETAMINOPHEN 650MG ER TAB (TYLENOL ARTHRITIS) PO PRN (08:17)
[2022-05-25] MEDS: INSULIN LISPRO (NovoLOG) PER UNIT SC SCH ×4 (08:17→20:52)
[2022-05-25] MEDS: SERTRALINE 100 MG TAB PO SCH (08:17)
[2022-05-25] MEDS: LIDOCAINE 5% (LIDODERM) PATCH TD SCH (08:18)
[2022-05-25] MEDS: LEVEMIR (INSULIN DETEMIR) 1 UNITS/0.01ML SC SCH (08:18)
[2022-05-25] MEDS ORDERED: QUEtiapine FUMARATE 12.5 MG HALF-TAB PO SCH (13:00)
[2022-05-25] MEDS ORDERED: OLANZapine INTRAMUSCULAR 10MG VIAL IM PRN (16:00)
[2022-05-25] MEDS: PANTOPRAZOLE 40MG TAB (PROTONIX) PO SCH (20:51)
[2022-05-25] MEDS: QUEtiapine FUMARATE 25 MG TAB PO SCH (21:03)
[2022-05-26] VITALS: BP 132/82
[2022-05-26] MEDS: QUEtiapine FUMARATE 25 MG TAB PO SCH ×3 (06:05→21:09)
[2022-05-26] MEDS: INSULIN LISPRO (NovoLOG) PER UNIT SC SCH ×4 (07:47→21:10)
[2022-05-26 07:59] VITALS: BP 139/82
[2022-05-26] MEDS: LIDOCAINE 5% (LIDODERM) PATCH TD SCH (10:03)
[2022-05-26] MEDS: ATORVASTATIN 10 MG TAB PO SCH (10:04)
[2022-05-26] MEDS: DONEPEZIL 5 MG TAB PO SCH (10:04)
[2022-05-26] MEDS: MULTIVITAMINS/MINERALS THERAP 1 TAB PO SCH (10:04)
[2022-05-26] MEDS: lisinopriL 40MG TAB PO SCH (10:04)
[2022-05-26] MEDS: ASPIRIN 81MG ENTERIC TABLET PO SCH (10:04)
[2022-05-26] MEDS: DOCUSATE SODIUM 100MG CAPSULE PO SCH ×2 (10:05→21:09)
[2022-05-26] MEDS: SERTRALINE 100 MG TAB PO SCH (10:05)
[2022-05-26] MEDS: LEVEMIR (INSULIN DETEMIR) 1 UNITS/0.01ML SC SCH (10:05)
[2022-05-26 13:10] VITALS: BP 151/83
[2022-05-26] MEDS: PANTOPRAZOLE 40MG TAB (PROTONIX) PO SCH (21:09)
[2022-05-27] MEDS: QUEtiapine FUMARATE 25 MG TAB PO SCH ×3 (05:19→20:52)
[2022-05-27 06:10] VITALS: BP 148/93
[2022-05-27] MEDS: INSULIN LISPRO (NovoLOG) PER UNIT SC SCH ×4 (07:30→20:52)
[2022-05-27] MEDS: LEVEMIR (INSULIN DETEMIR) 1 UNITS/0.01ML SC SCH (09:00)
[2022-05-27] MEDS: LIDOCAINE 5% (LIDODERM) PATCH TD SCH (09:00)
[2022-05-27] MEDS: ATORVASTATIN 10 MG TAB PO SCH (13:00)
[2022-05-27] MEDS: DOCUSATE SODIUM 100MG CAPSULE PO SCH ×2 (13:00→20:52)
[2022-05-27] MEDS: MULTIVITAMINS/MINERALS THERAP 1 TAB PO SCH (13:00)
[2022-05-27] MEDS: lisinopriL 40MG TAB PO SCH (13:01)
[2022-05-27] MEDS: SERTRALINE 100 MG TAB PO SCH (13:01)
[2022-05-27] MEDS: ASPIRIN 81MG ENTERIC TABLET PO SCH (13:02)
[2022-05-27] MEDS: DONEPEZIL 5 MG TAB PO SCH (13:02)
[2022-05-27] MEDS: ACETAMINOPHEN 650MG ER TAB (TYLENOL ARTHRITIS) PO PRN ×2 (14:57→20:52)
[2022-05-27] MEDS: PANTOPRAZOLE 40MG TAB (PROTONIX) PO SCH (20:52)
[2022-05-28] MEDS: QUEtiapine FUMARATE 25 MG TAB PO SCH ×3 (06:19→19:49)
[2022-05-28 06:29] VITALS: BP 136/68
[2022-05-28] MEDS: LEVEMIR (INSULIN DETEMIR) 1 UNITS/0.01ML SC SCH (09:31)
[2022-05-28] MEDS: MULTIVITAMINS/MINERALS THERAP 1 TAB PO SCH (09:32)
[2022-05-28] MEDS: INSULIN LISPRO (NovoLOG) PER UNIT SC SCH ×4 (09:32→19:49)
[2022-05-28] MEDS: DOCUSATE SODIUM 100MG CAPSULE PO SCH ×2 (09:32→19:43)
[2022-05-28] MEDS: DONEPEZIL 5 MG TAB PO SCH (09:33)
[2022-05-28] MEDS: SERTRALINE 100 MG TAB PO SCH (09:34)
[2022-05-28] MEDS: ASPIRIN 81MG ENTERIC TABLET PO SCH (09:34)
[2022-05-28] MEDS: ATORVASTATIN 10 MG TAB PO SCH (09:34)
[2022-05-28] MEDS: lisinopriL 40MG TAB PO SCH (09:34)
[2022-05-28] MEDS: LIDOCAINE 5% (LIDODERM) PATCH TD SCH (09:35)
[2022-05-28] MEDS: ACETAMINOPHEN 650MG ER TAB (TYLENOL ARTHRITIS) PO PRN (19:42)
[2022-05-28] MEDS: RAMELTEON 8 MG TAB (ROZEREM) PO PRN (19:42)
[2022-05-28] MEDS: PANTOPRAZOLE 40MG TAB (PROTONIX) PO SCH (19:42)
[2022-05-29 06:02] VITALS: BP 127/93
[2022-05-29] MEDS: QUEtiapine FUMARATE 25 MG TAB PO SCH ×3 (06:10→19:25)
[2022-05-29] MEDS: INSULIN LISPRO (NovoLOG) PER UNIT SC SCH ×4 (06:10→20:24)
[2022-05-29] MEDS: ACETAMINOPHEN 650MG ER TAB (TYLENOL ARTHRITIS) PO PRN ×2 (06:10→12:32)
[2022-05-29] MEDS: LEVEMIR (INSULIN DETEMIR) 1 UNITS/0.01ML SC SCH (09:00)
[2022-05-29] MEDS: LIDOCAINE 5% (LIDODERM) PATCH TD SCH (09:47)
[2022-05-29] MEDS: SERTRALINE 100 MG TAB PO SCH (09:47)
[2022-05-29] MEDS: DOCUSATE SODIUM 100MG CAPSULE PO SCH ×2 (09:47→19:25)
[2022-05-29] MEDS: ASPIRIN 81MG ENTERIC TABLET PO SCH (09:47)
[2022-05-29] MEDS: ATORVASTATIN 10 MG TAB PO SCH (09:47)
[2022-05-29] MEDS: lisinopriL 40MG TAB PO SCH (09:47)
[2022-05-29] MEDS: MULTIVITAMINS/MINERALS THERAP 1 TAB PO SCH (09:47)
[2022-05-29] MEDS: DONEPEZIL 5 MG TAB PO SCH (09:47)
[2022-05-29] MEDS ORDERED: OLANZapine 2.5MG TABLET PO ONE (17:40)
[2022-05-29] MEDS: PANTOPRAZOLE 40MG TAB (PROTONIX) PO SCH (19:25)
[2022-05-29] MEDS: RAMELTEON 8 MG TAB (ROZEREM) PO PRN (19:25)
[2022-05-30] MEDS: QUEtiapine FUMARATE 25 MG TAB PO SCH ×3 (05:13→22:10)
[2022-05-30] MEDS: ACETAMINOPHEN 650MG ER TAB (TYLENOL ARTHRITIS) PO PRN (05:13)
[2022-05-30 05:48] VITALS: BP 142/79
[2022-05-30] MEDS: INSULIN LISPRO (NovoLOG) PER UNIT SC SCH ×4 (08:25→20:33)
[2022-05-30] MEDS: DOCUSATE SODIUM 100MG CAPSULE PO SCH ×2 (08:26→20:13)
[2022-05-30] MEDS: MULTIVITAMINS/MINERALS THERAP 1 TAB PO SCH (08:26)
[2022-05-30] MEDS: DONEPEZIL 5 MG TAB PO SCH (08:26)
[2022-05-30] MEDS: SERTRALINE 100 MG TAB PO SCH (08:26)
[2022-05-30] MEDS: LEVEMIR (INSULIN DETEMIR) 1 UNITS/0.01ML SC SCH (08:26)
[2022-05-30] MEDS: lisinopriL 40MG TAB PO SCH (08:26)
[2022-05-30] MEDS: ASPIRIN 81MG ENTERIC TABLET PO SCH (08:26)
[2022-05-30] MEDS: ATORVASTATIN 10 MG TAB PO SCH (08:26)
[2022-05-30] MEDS: LIDOCAINE 5% (LIDODERM) PATCH TD SCH ×2 (08:26→09:00)
[2022-05-30] MEDS ORDERED: OLANZapine 2.5MG TABLET PO PRN (09:00)
[2022-05-30] MEDS: PANTOPRAZOLE 40MG TAB (PROTONIX) PO SCH (20:13)
[2022-05-31 01:20] VITALS: BP 142/78
[2022-05-31] MEDS: QUEtiapine FUMARATE 25 MG TAB PO SCH ×3 (06:10→20:34)
[2022-05-31] MEDS: INSULIN LISPRO (NovoLOG) PER UNIT SC SCH ×4 (07:27→20:35)
[2022-05-31] MEDS: LIDOCAINE 5% (LIDODERM) PATCH TD SCH (11:36)
[2022-05-31] MEDS: LEVEMIR (INSULIN DETEMIR) 1 UNITS/0.01ML SC SCH (11:52)
[2022-05-31] MEDS: lisinopriL 40MG TAB PO SCH (11:53)
[2022-05-31] MEDS: DONEPEZIL 5 MG TAB PO SCH (11:53)
[2022-05-31] MEDS: ATORVASTATIN 10 MG TAB PO SCH (11:53)
[2022-05-31] MEDS: ASPIRIN 81MG ENTERIC TABLET PO SCH (11:53)
[2022-05-31] MEDS: DOCUSATE SODIUM 100MG CAPSULE PO SCH ×2 (11:54→20:34)
[2022-05-31] MEDS: MULTIVITAMINS/MINERALS THERAP 1 TAB PO SCH (11:54)
[2022-05-31] MEDS: SERTRALINE 100 MG TAB PO SCH (11:54)
[2022-05-31] MEDS: RAMELTEON 8 MG TAB (ROZEREM) PO PRN (19:41)
[2022-05-31] MEDS: ACETAMINOPHEN 650MG ER TAB (TYLENOL ARTHRITIS) PO PRN (19:41)
[2022-05-31] MEDS: PANTOPRAZOLE 40MG TAB (PROTONIX) PO SCH (20:34)
[2022-06-01] MEDS: QUEtiapine FUMARATE 25 MG TAB PO SCH ×3 (06:29→20:09)
[2022-06-01 06:35] VITALS: BP 146/89
[2022-06-01] MEDS: ATORVASTATIN 10 MG TAB PO SCH (08:21)
[2022-06-01] MEDS: MULTIVITAMINS/MINERALS THERAP 1 TAB PO SCH (08:21)
[2022-06-01] MEDS: ASPIRIN 81MG ENTERIC TABLET PO SCH (08:21)
[2022-06-01] MEDS: DONEPEZIL 5 MG TAB PO SCH (08:21)
[2022-06-01] MEDS: DOCUSATE SODIUM 100MG CAPSULE PO SCH ×2 (08:21→20:09)
[2022-06-01] MEDS: lisinopriL 40MG TAB PO SCH (08:21)
[2022-06-01] MEDS: INSULIN LISPRO (NovoLOG) PER UNIT SC SCH ×4 (08:21→20:34)
[2022-06-01] MEDS: LEVEMIR (INSULIN DETEMIR) 1 UNITS/0.01ML SC SCH (08:21)
[2022-06-01] MEDS: SERTRALINE 100 MG TAB PO SCH (08:21)
[2022-06-01] MEDS: LIDOCAINE 5% (LIDODERM) PATCH TD SCH (08:22)
[2022-06-01] MEDS: RAMELTEON 8 MG TAB (ROZEREM) PO PRN (20:09)
[2022-06-01] MEDS: PANTOPRAZOLE 40MG TAB (PROTONIX) PO SCH (20:09)
[2022-06-01] MEDS: ACETAMINOPHEN 650MG ER TAB (TYLENOL ARTHRITIS) PO PRN (20:09)
[2022-06-02 06:48] VITALS: BP 148/88
[2022-06-02] MEDS: SERTRALINE 100 MG TAB PO SCH (07:59)
[2022-06-02] MEDS: ACETAMINOPHEN 650MG ER TAB (TYLENOL ARTHRITIS) PO PRN ×2 (07:59→20:11)
[2022-06-02] MEDS: QUEtiapine FUMARATE 25 MG TAB PO SCH ×3 (07:59→20:11)
[2022-06-02] MEDS: MULTIVITAMINS/MINERALS THERAP 1 TAB PO SCH (07:59)
[2022-06-02] MEDS: DOCUSATE SODIUM 100MG CAPSULE PO SCH ×2 (08:00→20:11)
[2022-06-02] MEDS: DONEPEZIL 5 MG TAB PO SCH (08:00)
[2022-06-02] MEDS: ASPIRIN 81MG ENTERIC TABLET PO SCH (08:00)
[2022-06-02] MEDS: lisinopriL 40MG TAB PO SCH (08:00)
[2022-06-02] MEDS: LEVEMIR (INSULIN DETEMIR) 1 UNITS/0.01ML SC SCH (08:01)
[2022-06-02] MEDS: INSULIN LISPRO (NovoLOG) PER UNIT SC SCH ×4 (08:01→20:45)
[2022-06-02] MEDS: LIDOCAINE 5% (LIDODERM) PATCH TD SCH (08:01)
[2022-06-02] MEDS: ATORVASTATIN 10 MG TAB PO SCH (08:02)
[2022-06-02] MEDS: RAMELTEON 8 MG TAB (ROZEREM) PO PRN (20:10)
[2022-06-02] MEDS: PANTOPRAZOLE 40MG TAB (PROTONIX) PO SCH (20:11)
[2022-06-03 06:06] VITALS: BP 156/88
[2022-06-03] MEDS: LEVEMIR (INSULIN DETEMIR) 1 UNITS/0.01ML SC SCH (08:31)
[2022-06-03] MEDS: ATORVASTATIN 10 MG TAB PO SCH (08:32)
[2022-06-03] MEDS: ACETAMINOPHEN 650MG ER TAB (TYLENOL ARTHRITIS) PO PRN ×2 (08:32→19:56)
[2022-06-03] MEDS: MULTIVITAMINS/MINERALS THERAP 1 TAB PO SCH (08:32)
[2022-06-03] MEDS: DOCUSATE SODIUM 100MG CAPSULE PO SCH ×2 (08:32→19:56)
[2022-06-03] MEDS: INSULIN LISPRO (NovoLOG) PER UNIT SC SCH ×4 (08:32→20:23)
[2022-06-03] MEDS: SERTRALINE 100 MG TAB PO SCH (08:32)
[2022-06-03] MEDS: DONEPEZIL 5 MG TAB PO SCH (08:32)
[2022-06-03] MEDS: lisinopriL 40MG TAB PO SCH (08:32)
[2022-06-03] MEDS: ASPIRIN 81MG ENTERIC TABLET PO SCH (08:32)
[2022-06-03] MEDS: LIDOCAINE 5% (LIDODERM) PATCH TD SCH (08:33)
[2022-06-03] MEDS: QUEtiapine FUMARATE 25 MG TAB PO SCH ×3 (08:33→20:25)
[2022-06-03] MEDS: ENOXAPARIN 40MG/0.4ML SYRINGE (J1650 PER 10MG) SC SCH (19:56)
[2022-06-03] MEDS: RAMELTEON 8 MG TAB (ROZEREM) PO PRN (19:56)
[2022-06-03] MEDS: PANTOPRAZOLE 40MG TAB (PROTONIX) PO SCH (19:56)
[2022-06-04] MEDS: QUEtiapine FUMARATE 25 MG TAB PO SCH ×3 (04:35→20:02)
[2022-06-04 06:00] VITALS: BP 156/88
[2022-06-04] MEDS: MULTIVITAMINS/MINERALS THERAP 1 TAB PO SCH (07:41)
[2022-06-04] MEDS: DONEPEZIL 5 MG TAB PO SCH (07:41)
[2022-06-04] MEDS: ATORVASTATIN 10 MG TAB PO SCH (07:41)
[2022-06-04] MEDS: ACETAMINOPHEN 650MG ER TAB (TYLENOL ARTHRITIS) PO PRN ×2 (07:41→20:00)
[2022-06-04] MEDS: DOCUSATE SODIUM 100MG CAPSULE PO SCH ×2 (07:41→20:00)
[2022-06-04] MEDS: lisinopriL 40MG TAB PO SCH (07:41)
[2022-06-04] MEDS: SERTRALINE 100 MG TAB PO SCH (07:41)
[2022-06-04] MEDS: LIDOCAINE 5% (LIDODERM) PATCH TD SCH ×3 (07:42→20:17)
[2022-06-04] MEDS: INSULIN LISPRO (NovoLOG) PER UNIT SC SCH ×4 (07:42→19:53)
[2022-06-04] MEDS: LEVEMIR (INSULIN DETEMIR) 1 UNITS/0.01ML SC SCH (07:42)
[2022-06-04] MEDS: RAMELTEON 8 MG TAB (ROZEREM) PO PRN (20:00)
[2022-06-04] MEDS: PANTOPRAZOLE 40MG TAB (PROTONIX) PO SCH (20:00)
[2022-06-04] MEDS: ENOXAPARIN 40MG/0.4ML SYRINGE (J1650 PER 10MG) SC SCH (20:00)
[2022-06-04] MEDS ORDERED: IBUPROFEN 600MG TAB PO ONE (22:40)
[2022-06-05 06:00] VITALS: BP 150/81
[2022-06-05] MEDS: QUEtiapine FUMARATE 25 MG TAB PO SCH ×3 (06:17→19:57)
[2022-06-05] MEDS: LIDOCAINE 5% (LIDODERM) PATCH TD SCH (09:22)
[2022-06-05] MEDS: ATORVASTATIN 10 MG TAB PO SCH (09:23)
[2022-06-05] MEDS: LEVEMIR (INSULIN DETEMIR) 1 UNITS/0.01ML SC SCH (09:23)
[2022-06-05] MEDS: MULTIVITAMINS/MINERALS THERAP 1 TAB PO SCH (09:23)
[2022-06-05] MEDS: INSULIN LISPRO (NovoLOG) PER UNIT SC SCH ×4 (09:23→20:33)
[2022-06-05] MEDS: DOCUSATE SODIUM 100MG CAPSULE PO SCH ×2 (09:24→19:57)
[2022-06-05] MEDS: DONEPEZIL 5 MG TAB PO SCH (09:24)
[2022-06-05] MEDS: lisinopriL 40MG TAB PO SCH (09:24)
[2022-06-05] MEDS: SERTRALINE 100 MG TAB PO SCH (09:24)
[2022-06-05] MEDS: ACETAMINOPHEN 650MG ER TAB (TYLENOL ARTHRITIS) PO PRN (19:57)
[2022-06-05] MEDS: PANTOPRAZOLE 40MG TAB (PROTONIX) PO SCH (19:57)
[2022-06-05] MEDS: RAMELTEON 8 MG TAB (ROZEREM) PO PRN (19:57)
[2022-06-05] MEDS: ENOXAPARIN 40MG/0.4ML SYRINGE (J1650 PER 10MG) SC SCH (19:58)
[2022-06-06] MEDS: ACETAMINOPHEN 650MG ER TAB (TYLENOL ARTHRITIS) PO PRN (02:12)
[2022-06-06] MEDS: QUEtiapine FUMARATE 25 MG TAB PO SCH ×3 (05:28→20:02)
[2022-06-06 06:00] VITALS: BP 162/81
[2022-06-06 06:53] LABS: HEMATOCRIT 37.1 % (42.0-52.0); HEMOGLOBIN 12.2 g/dl (13.5-17.5); MEAN CORPUSCULAR HGB CONC 32.9 g/dl (32.0-36.5); MEAN CORPUSCULAR VOLUME 85.1 fl (80.0-96.0); PLATELET COUNT, AUTOMATED 143 10^3/uL (150-450); RED BLOOD COUNT 4.36 10^6/uL (4.30-6.10); WHITE BLOOD COUNT 6.9 10^3/uL (4.0-10.0)
[2022-06-06] MEDS: ATORVASTATIN 10 MG TAB PO SCH (08:29)
[2022-06-06] MEDS: lisinopriL 40MG TAB PO SCH (08:29)
[2022-06-06] MEDS: MULTIVITAMINS/MINERALS THERAP 1 TAB PO SCH (08:29)
[2022-06-06] MEDS: SERTRALINE 100 MG TAB PO SCH (08:29)
[2022-06-06] MEDS: LEVEMIR (INSULIN DETEMIR) 1 UNITS/0.01ML SC SCH (08:30)
[2022-06-06] MEDS: DONEPEZIL 5 MG TAB PO SCH (08:30)
[2022-06-06] MEDS: LIDOCAINE 5% (LIDODERM) PATCH TD SCH (08:30)
[2022-06-06] MEDS: DOCUSATE SODIUM 100MG CAPSULE PO SCH ×2 (08:31→20:01)
[2022-06-06] MEDS: INSULIN LISPRO (NovoLOG) PER UNIT SC SCH ×4 (08:31→20:05)
[2022-06-06] MEDS: PANTOPRAZOLE 40MG TAB (PROTONIX) PO SCH (20:01)
[2022-06-06] MEDS: RAMELTEON 8 MG TAB (ROZEREM) PO PRN (20:01)
[2022-06-06] MEDS: ENOXAPARIN 40MG/0.4ML SYRINGE (J1650 PER 10MG) SC SCH (20:04)
[2022-06-07] MEDS: ACETAMINOPHEN 650MG ER TAB (TYLENOL ARTHRITIS) PO PRN (00:15)
[2022-06-07 06:00] VITALS: BP 151/83
[2022-06-07] MEDS: QUEtiapine FUMARATE 25 MG TAB PO SCH ×3 (06:14→21:19)
[2022-06-07] MEDS: LEVEMIR (INSULIN DETEMIR) 1 UNITS/0.01ML SC SCH (07:48)
[2022-06-07] MEDS: LIDOCAINE 5% (LIDODERM) PATCH TD SCH (07:49)
[2022-06-07] MEDS: lisinopriL 40MG TAB PO SCH (07:49)
[2022-06-07] MEDS: ATORVASTATIN 10 MG TAB PO SCH (07:49)
[2022-06-07] MEDS: INSULIN LISPRO (NovoLOG) PER UNIT SC SCH ×4 (07:49→21:00)
[2022-06-07] MEDS: MULTIVITAMINS/MINERALS THERAP 1 TAB PO SCH (07:50)
[2022-06-07] MEDS: DONEPEZIL 5 MG TAB PO SCH (07:50)
[2022-06-07] MEDS: DOCUSATE SODIUM 100MG CAPSULE PO SCH ×2 (07:50→21:20)
[2022-06-07] MEDS: SERTRALINE 100 MG TAB PO SCH (07:50)
[2022-06-07] MEDS: PANTOPRAZOLE 40MG TAB (PROTONIX) PO SCH (21:19)
[2022-06-07] MEDS: ENOXAPARIN 40MG/0.4ML SYRINGE (J1650 PER 10MG) SC SCH (21:20)
[2022-06-08] MEDS: ACETAMINOPHEN 650MG ER TAB (TYLENOL ARTHRITIS) PO PRN ×2 (01:12→20:42)
[2022-06-08] MEDS: QUEtiapine FUMARATE 25 MG TAB PO SCH ×3 (05:49→20:43)
[2022-06-08 06:00] VITALS: BP 162/108
[2022-06-08] MEDS: lisinopriL 40MG TAB PO SCH (06:38)
[2022-06-08 07:36] VITALS: BP 142/75
[2022-06-08 08:25] VITALS: BP 146/93
[2022-06-08] MEDS: SERTRALINE 100 MG TAB PO SCH (08:51)
[2022-06-08] MEDS: ATORVASTATIN 10 MG TAB PO SCH (08:51)
[2022-06-08] MEDS: DOCUSATE SODIUM 100MG CAPSULE PO SCH ×2 (08:51→20:42)
[2022-06-08] MEDS: DONEPEZIL 5 MG TAB PO SCH (08:52)
[2022-06-08] MEDS: LEVEMIR (INSULIN DETEMIR) 1 UNITS/0.01ML SC SCH (08:52)
[2022-06-08] MEDS: LIDOCAINE 5% (LIDODERM) PATCH TD SCH (08:52)
[2022-06-08] MEDS: MULTIVITAMINS/MINERALS THERAP 1 TAB PO SCH (08:52)
[2022-06-08] MEDS: INSULIN LISPRO (NovoLOG) PER UNIT SC SCH ×4 (08:53→20:43)
[2022-06-08] MEDS: PANTOPRAZOLE 40MG TAB (PROTONIX) PO SCH (20:42)
[2022-06-08] MEDS: ENOXAPARIN 40MG/0.4ML SYRINGE (J1650 PER 10MG) SC SCH (20:42)
[2022-06-08] MEDS: RAMELTEON 8 MG TAB (ROZEREM) PO PRN (20:43)
[2022-06-09 06:00] VITALS: BP 149/89
[2022-06-09 07:30] LABS: HEMATOCRIT 38.2 % (42.0-52.0); HEMOGLOBIN 12.6 g/dl (13.5-17.5); MEAN CORPUSCULAR HEMOGLOBIN 28.3 pg (27.0-33.0); MEAN CORPUSCULAR VOLUME 85.7 fl (80.0-96.0); PLATELET COUNT, AUTOMATED 154 10^3/uL (150-450); RED BLOOD COUNT 4.46 10^6/uL (4.30-6.10); WHITE BLOOD COUNT 6.8 10^3/uL (4.0-10.0)
[2022-06-09] MEDS: INSULIN LISPRO (NovoLOG) PER UNIT SC SCH ×4 (07:30→19:41)
[2022-06-09] MEDS: LIDOCAINE 5% (LIDODERM) PATCH TD SCH (07:53)
[2022-06-09] MEDS: ACETAMINOPHEN 650MG ER TAB (TYLENOL ARTHRITIS) PO PRN ×2 (07:54→19:32)
[2022-06-09] MEDS: LEVEMIR (INSULIN DETEMIR) 1 UNITS/0.01ML SC SCH (07:54)
[2022-06-09] MEDS: DOCUSATE SODIUM 100MG CAPSULE PO SCH ×2 (07:54→19:40)
[2022-06-09] MEDS: QUEtiapine FUMARATE 25 MG TAB PO SCH ×3 (07:54→19:32)
[2022-06-09] MEDS: ATORVASTATIN 10 MG TAB PO SCH (07:54)
[2022-06-09] MEDS: DONEPEZIL 5 MG TAB PO SCH (07:54)
[2022-06-09] MEDS: MULTIVITAMINS/MINERALS THERAP 1 TAB PO SCH (07:55)
[2022-06-09] MEDS: SERTRALINE 100 MG TAB PO SCH (07:55)
[2022-06-09] MEDS: lisinopriL 40MG TAB PO SCH (07:55)
[2022-06-09] MEDS: PANTOPRAZOLE 40MG TAB (PROTONIX) PO SCH (19:32)
[2022-06-09] MEDS: ENOXAPARIN 40MG/0.4ML SYRINGE (J1650 PER 10MG) SC SCH (19:32)
[2022-06-09] MEDS: RAMELTEON 8 MG TAB (ROZEREM) PO PRN (19:32)
[2022-06-09] MEDS ORDERED: risperiDONE 0.5 MG TAB PO ONE (23:50)
[2022-06-10 06:09] VITALS: BP 170/95
[2022-06-10] MEDS: lisinopriL 40MG TAB PO SCH (07:43)
[2022-06-10] MEDS: SERTRALINE 100 MG TAB PO SCH (07:43)
[2022-06-10] MEDS: MULTIVITAMINS/MINERALS THERAP 1 TAB PO SCH (07:43)
[2022-06-10] MEDS: DOCUSATE SODIUM 100MG CAPSULE PO SCH ×2 (07:43→20:09)
[2022-06-10] MEDS: ATORVASTATIN 10 MG TAB PO SCH (07:43)
[2022-06-10] MEDS: QUEtiapine FUMARATE 25 MG TAB PO SCH ×4 (07:43→23:31)
[2022-06-10] MEDS: LIDOCAINE 5% (LIDODERM) PATCH TD SCH (07:44)
[2022-06-10] MEDS: DONEPEZIL 5 MG TAB PO SCH (07:44)
[2022-06-10] MEDS: LEVEMIR (INSULIN DETEMIR) 1 UNITS/0.01ML SC SCH (07:45)
[2022-06-10] MEDS: INSULIN LISPRO (NovoLOG) PER UNIT SC SCH ×4 (07:45→20:09)
[2022-06-10] MEDS: ACETAMINOPHEN 650MG ER TAB (TYLENOL ARTHRITIS) PO PRN (12:12)
[2022-06-10 14:00] VITALS: BP 132/69
[2022-06-10] MEDS: PANTOPRAZOLE 40MG TAB (PROTONIX) PO SCH (20:09)
[2022-06-10] MEDS: ENOXAPARIN 40MG/0.4ML SYRINGE (J1650 PER 10MG) SC SCH (20:09)
[2022-06-11 06:00] VITALS: BP 128/69
[2022-06-11] MEDS: QUEtiapine FUMARATE 25 MG TAB PO SCH ×3 (06:45→21:00)
[2022-06-11] MEDS: ACETAMINOPHEN 650MG ER TAB (TYLENOL ARTHRITIS) PO PRN ×2 (06:45→21:00)
[2022-06-11] MEDS: INSULIN LISPRO (NovoLOG) PER UNIT SC SCH ×4 (08:04→21:00)
[2022-06-11] MEDS: LEVEMIR (INSULIN DETEMIR) 1 UNITS/0.01ML SC SCH (08:04)
[2022-06-11] MEDS: SERTRALINE 100 MG TAB PO SCH (08:05)
[2022-06-11] MEDS: DONEPEZIL 5 MG TAB PO SCH (08:05)
[2022-06-11] MEDS: LIDOCAINE 5% (LIDODERM) PATCH TD SCH (08:05)
[2022-06-11] MEDS: lisinopriL 40MG TAB PO SCH (08:05)
[2022-06-11] MEDS: MULTIVITAMINS/MINERALS THERAP 1 TAB PO SCH (08:05)
[2022-06-11] MEDS: DOCUSATE SODIUM 100MG CAPSULE PO SCH ×2 (08:05→21:00)
[2022-06-11] MEDS: ATORVASTATIN 10 MG TAB PO SCH (08:05)
[2022-06-11] MEDS: PANTOPRAZOLE 40MG TAB (PROTONIX) PO SCH (21:00)
[2022-06-11] MEDS: RAMELTEON 8 MG TAB (ROZEREM) PO PRN (21:00)
[2022-06-11] MEDS: ENOXAPARIN 40MG/0.4ML SYRINGE (J1650 PER 10MG) SC SCH (21:00)
[2022-06-12 06:00] VITALS: BP 97/77
[2022-06-12] MEDS: QUEtiapine FUMARATE 25 MG TAB PO SCH ×3 (06:42→20:34)
[2022-06-12 06:54] LABS: MEAN CORPUSCULAR HEMOGLOBIN 28.3 pg (27.0-33.0); MEAN CORPUSCULAR HGB CONC 33.3 g/dl (32.0-36.5); PLATELET COUNT, AUTOMATED 171 10^3/uL (150-450); RED BLOOD COUNT 4.59 10^6/uL (4.30-6.10); WHITE BLOOD COUNT 7.4 10^3/uL (4.0-10.0)
[2022-06-12] MEDS: INSULIN LISPRO (NovoLOG) PER UNIT SC SCH ×4 (09:31→20:38)
[2022-06-12] MEDS ORDERED: ONDANSETRON 4MG 2ML VIAL IV PRN (10:00)
[2022-06-12] MEDS ORDERED: ONDANSETRON 4MG TAB PO PRN (11:30)
[2022-06-12] MEDS: DONEPEZIL 5 MG TAB PO SCH (12:55)
[2022-06-12] MEDS: MULTIVITAMINS/MINERALS THERAP 1 TAB PO SCH (12:56)
[2022-06-12] MEDS: ATORVASTATIN 10 MG TAB PO SCH (12:56)
[2022-06-12] MEDS: lisinopriL 40MG TAB PO SCH (12:56)
[2022-06-12] MEDS: DOCUSATE SODIUM 100MG CAPSULE PO SCH ×2 (12:56→20:34)
[2022-06-12] MEDS: LEVEMIR (INSULIN DETEMIR) 1 UNITS/0.01ML SC SCH (12:57)
[2022-06-12] MEDS: LIDOCAINE 5% (LIDODERM) PATCH TD SCH (12:57)
[2022-06-12] MEDS: SERTRALINE 100 MG TAB PO SCH (12:57)
[2022-06-12 16:04] LABS: BASO % 0.4 % (0.0-1.0); EOS # 0.4 10^3/uL (0.0-0.5); EOS % 5.3 % (0.0-3.0); HEMATOCRIT 40.4 % (42.0-52.0); HEMOGLOBIN 13.2 g/dl (13.5-17.5); LYMPH % 14.7 % (24.0-44.0); MEAN CORPUSCULAR HGB CONC 32.7 g/dl (32.0-36.5); MEAN CORPUSCULAR VOLUME 85.8 fl (80.0-96.0); MONO # 0.5 10^3/uL (0.0-0.8); MONO % 7.4 % (2.0-8.0); NEUTROPHILS # 4.9 10^3/uL (1.5-8.5); NEUTROPHILS % 71.8 % (36.0-66.0); PLATELET COUNT, AUTOMATED 168 10^3/uL (150-450); RED BLOOD COUNT 4.71 10^6/uL (4.30-6.10); WHITE BLOOD COUNT 6.8 10^3/uL (4.0-10.0)
[2022-06-12 16:27] LABS: MAGNESIUM LEVEL 1.7 MG/DL (1.8-2.4)
[2022-06-12 16:28] LABS: ALBUMIN 3.4 G/DL (3.2-5.2); ALKALINE PHOSPHATASE 131 U/L (46-116); ALT/SGPT 29 U/L (7.0-40); AST/SGOT 21 U/L (<34); BILIRUBIN,TOTAL 0.4 MG/DL (0.3-1.2); BLOOD UREA NITROGEN 26 MG/DL (9-23); CALCIUM LEVEL 8.7 MG/DL (8.3-10.6); CARBON DIOXIDE LEVEL 24 MMOL/L (20-31); CHLORIDE LEVEL 106 MMOL/L (98-107); CREATININE FOR GFR 1.03 MG/DL (0.70-1.30); GLOMERULAR FILTRATION RATE > 60.0 (>42); GLUCOSE, FASTING 373 MG/DL (74-106); POTASSIUM SERUM 4.5 MMOL/L (3.5-5.1); SODIUM LEVEL 139 MMOL/L (136-145); TOTAL PROTEIN 6.1 G/DL (5.7-8.2)
[2022-06-12] MEDS: PANTOPRAZOLE 40MG TAB (PROTONIX) PO SCH (20:34)
[2022-06-12] MEDS: ACETAMINOPHEN 650MG ER TAB (TYLENOL ARTHRITIS) PO PRN (20:34)
[2022-06-12] MEDS: RAMELTEON 8 MG TAB (ROZEREM) PO PRN (20:34)
[2022-06-12] MEDS: ENOXAPARIN 40MG/0.4ML SYRINGE (J1650 PER 10MG) SC SCH (20:36)
[2022-06-13] MEDS ORDERED: QUEtiapine FUMARATE 25 MG TAB PO ONE (03:00)
[2022-06-13] MEDS: QUEtiapine FUMARATE 25 MG TAB PO SCH ×2 (06:17→13:41)
[2022-06-13 06:50] VITALS: BP 151/82
[2022-06-13] MEDS: DONEPEZIL 5 MG TAB PO SCH (07:51)
[2022-06-13] MEDS: SERTRALINE 100 MG TAB PO SCH (07:51)
[2022-06-13] MEDS: lisinopriL 40MG TAB PO SCH (07:51)
[2022-06-13] MEDS: MULTIVITAMINS/MINERALS THERAP 1 TAB PO SCH (07:51)
[2022-06-13] MEDS: ATORVASTATIN 10 MG TAB PO SCH (07:51)
[2022-06-13] MEDS: DOCUSATE SODIUM 100MG CAPSULE PO SCH ×2 (07:51→20:07)
[2022-06-13] MEDS: LIDOCAINE 5% (LIDODERM) PATCH TD SCH (07:51)
[2022-06-13] MEDS: LEVEMIR (INSULIN DETEMIR) 1 UNITS/0.01ML SC SCH (07:52)
[2022-06-13] MEDS: INSULIN LISPRO (NovoLOG) PER UNIT SC SCH ×4 (07:52→20:07)
[2022-06-13] MEDS: ACETAMINOPHEN 650MG ER TAB (TYLENOL ARTHRITIS) PO PRN (20:07)
[2022-06-13] MEDS: PANTOPRAZOLE 40MG TAB (PROTONIX) PO SCH (20:07)
[2022-06-13] MEDS: RAMELTEON 8 MG TAB (ROZEREM) PO PRN (20:07)
[2022-06-13] MEDS: ENOXAPARIN 40MG/0.4ML SYRINGE (J1650 PER 10MG) SC SCH (20:08)
[2022-06-13] MEDS ORDERED: QUEtiapine FUMARATE 50MG TAB PO SCH (21:00)
[2022-06-14] MEDS: QUEtiapine FUMARATE 25 MG TAB PO SCH ×2 (05:27→14:00)
[2022-06-14 06:00] VITALS: BP 121/53
[2022-06-14] MEDS: INSULIN LISPRO (NovoLOG) PER UNIT SC SCH ×4 (07:30→21:00)
[2022-06-14] MEDS: ATORVASTATIN 10 MG TAB PO SCH (11:25)
[2022-06-14] MEDS: DONEPEZIL 5 MG TAB PO SCH (11:25)
[2022-06-14] MEDS: MULTIVITAMINS/MINERALS THERAP 1 TAB PO SCH (11:25)
[2022-06-14] MEDS: lisinopriL 40MG TAB PO SCH (11:25)
[2022-06-14] MEDS: LEVEMIR (INSULIN DETEMIR) 1 UNITS/0.01ML SC SCH (11:25)
[2022-06-14] MEDS: SERTRALINE 100 MG TAB PO SCH (11:25)
[2022-06-14] MEDS: DOCUSATE SODIUM 100MG CAPSULE PO SCH ×2 (11:25→21:03)
[2022-06-14] MEDS: LIDOCAINE 5% (LIDODERM) PATCH TD SCH (11:26)
[2022-06-14] MEDS ORDERED: QUEtiapine FUMARATE 25 MG TAB PO SCH (21:00)
[2022-06-14] MEDS: RAMELTEON 8 MG TAB (ROZEREM) PO PRN (21:03)
[2022-06-14] MEDS: QUEtiapine FUMARATE 50MG TAB PO SCH (21:03)
[2022-06-14] MEDS: PANTOPRAZOLE 40MG TAB (PROTONIX) PO SCH (21:03)
[2022-06-14] MEDS: ENOXAPARIN 40MG/0.4ML SYRINGE (J1650 PER 10MG) SC SCH (21:04)
[2022-06-15 05:59] LABS: HEMATOCRIT 40.1 % (42.0-52.0); HEMOGLOBIN 13.3 g/dl (13.5-17.5); MEAN CORPUSCULAR HEMOGLOBIN 28.2 pg (27.0-33.0); MEAN CORPUSCULAR HGB CONC 33.2 g/dl (32.0-36.5); MEAN CORPUSCULAR VOLUME 85.1 fl (80.0-96.0); PLATELET COUNT, AUTOMATED 213 10^3/uL (150-450); RED BLOOD COUNT 4.71 10^6/uL (4.30-6.10); WHITE BLOOD COUNT 12.3 10^3/uL (4.0-10.0)
[2022-06-15 06:00] VITALS: BP 130/85
[2022-06-15] MEDS: INSULIN LISPRO (NovoLOG) PER UNIT SC SCH ×4 (07:30→20:55)
[2022-06-15] MEDS: SERTRALINE 100 MG TAB PO SCH (09:18)
[2022-06-15] MEDS: DOCUSATE SODIUM 100MG CAPSULE PO SCH ×2 (09:18→19:37)
[2022-06-15] MEDS: DONEPEZIL 5 MG TAB PO SCH (09:18)
[2022-06-15] MEDS: lisinopriL 40MG TAB PO SCH (09:18)
[2022-06-15] MEDS: MULTIVITAMINS/MINERALS THERAP 1 TAB PO SCH (09:18)
[2022-06-15] MEDS: QUEtiapine FUMARATE 25 MG TAB PO SCH (09:18)
[2022-06-15] MEDS: LIDOCAINE 5% (LIDODERM) PATCH TD SCH (09:18)
[2022-06-15] MEDS: LEVEMIR (INSULIN DETEMIR) 1 UNITS/0.01ML SC SCH (09:19)
[2022-06-15] MEDS: ATORVASTATIN 10 MG TAB PO SCH (09:22)
[2022-06-15] MEDS: RAMELTEON 8 MG TAB (ROZEREM) PO PRN (19:37)
[2022-06-15] MEDS: PANTOPRAZOLE 40MG TAB (PROTONIX) PO SCH (19:37)
[2022-06-15] MEDS: ACETAMINOPHEN 650MG ER TAB (TYLENOL ARTHRITIS) PO PRN (19:37)
[2022-06-15] MEDS: ENOXAPARIN 40MG/0.4ML SYRINGE (J1650 PER 10MG) SC SCH (19:38)
[2022-06-15] MEDS: QUEtiapine FUMARATE 50MG TAB PO SCH (19:38)
[2022-06-16 06:00] VITALS: BP 139/66
[2022-06-16] MEDS: ATORVASTATIN 10 MG TAB PO SCH (09:15)
[2022-06-16] MEDS: DONEPEZIL 5 MG TAB PO SCH (09:15)
[2022-06-16] MEDS: QUEtiapine FUMARATE 25 MG TAB PO SCH (09:15)
[2022-06-16] MEDS: SERTRALINE 100 MG TAB PO SCH (09:15)
[2022-06-16] MEDS: LIDOCAINE 5% (LIDODERM) PATCH TD SCH (09:15)
[2022-06-16] MEDS: DOCUSATE SODIUM 100MG CAPSULE PO SCH ×2 (09:15→19:45)
[2022-06-16] MEDS: lisinopriL 40MG TAB PO SCH (09:15)
[2022-06-16] MEDS: LEVEMIR (INSULIN DETEMIR) 1 UNITS/0.01ML SC SCH (09:16)
[2022-06-16] MEDS: INSULIN LISPRO (NovoLOG) PER UNIT SC SCH ×4 (09:16→20:40)
[2022-06-16] MEDS: MULTIVITAMINS/MINERALS THERAP 1 TAB PO SCH (09:19)
[2022-06-16] MEDS: RAMELTEON 8 MG TAB (ROZEREM) PO PRN (19:44)
[2022-06-16] MEDS: ENOXAPARIN 40MG/0.4ML SYRINGE (J1650 PER 10MG) SC SCH (19:45)
[2022-06-16] MEDS: PANTOPRAZOLE 40MG TAB (PROTONIX) PO SCH (19:45)
[2022-06-16] MEDS: QUEtiapine FUMARATE 50MG TAB PO SCH (19:45)
[2022-06-16] MEDS: ACETAMINOPHEN 650MG ER TAB (TYLENOL ARTHRITIS) PO PRN (19:45)
[2022-06-17 06:37] VITALS: BP 181/99
[2022-06-17] MEDS: lisinopriL 40MG TAB PO SCH (06:50)
[2022-06-17] MEDS ORDERED: NORV5TAB PO (08:09)
[2022-06-17 08:41] LABS: MAGNESIUM LEVEL 1.7 MG/DL (1.8-2.4)
[2022-06-17 08:43] LABS: BLOOD UREA NITROGEN 23 MG/DL (9-23); CARBON DIOXIDE LEVEL 24 MMOL/L (20-31); CHLORIDE LEVEL 105 MMOL/L (98-107); CREATININE FOR GFR 0.92 MG/DL (0.70-1.30); GLOMERULAR FILTRATION RATE > 60.0 (>42); GLUCOSE, FASTING 148 MG/DL (74-106); POTASSIUM SERUM 4.7 MMOL/L (3.5-5.1); SODIUM LEVEL 140 MMOL/L (136-145)
[2022-06-17] MEDS: DOCUSATE SODIUM 100MG CAPSULE PO SCH ×2 (08:55→19:36)
[2022-06-17] MEDS: MULTIVITAMINS/MINERALS THERAP 1 TAB PO SCH (08:55)
[2022-06-17] MEDS: LIDOCAINE 5% (LIDODERM) PATCH TD SCH (08:55)
[2022-06-17] MEDS: DONEPEZIL 5 MG TAB PO SCH (08:55)
[2022-06-17] MEDS: ATORVASTATIN 10 MG TAB PO SCH (08:55)
[2022-06-17] MEDS: SERTRALINE 100 MG TAB PO SCH (08:55)
[2022-06-17] MEDS: INSULIN LISPRO (NovoLOG) PER UNIT SC SCH ×4 (08:55→20:18)
[2022-06-17] MEDS: LEVEMIR (INSULIN DETEMIR) 1 UNITS/0.01ML SC SCH (08:55)
[2022-06-17] MEDS: QUEtiapine FUMARATE 25 MG TAB PO SCH (08:55)
[2022-06-17 10:23] VITALS: BP 107/71
[2022-06-17] MEDS: PANTOPRAZOLE 40MG TAB (PROTONIX) PO SCH (19:36)
[2022-06-17] MEDS: ENOXAPARIN 40MG/0.4ML SYRINGE (J1650 PER 10MG) SC SCH (19:36)
[2022-06-17] MEDS: QUEtiapine FUMARATE 50MG TAB PO SCH (19:36)
[2022-06-17] MEDS: RAMELTEON 8 MG TAB (ROZEREM) PO PRN (21:56)
[2022-06-17] MEDS: ACETAMINOPHEN 650MG ER TAB (TYLENOL ARTHRITIS) PO PRN (21:56)
[2022-06-18 06:00] VITALS: BP 154/82
[2022-06-18] MEDS: lisinopriL 40MG TAB PO SCH (09:44)
[2022-06-18] MEDS: MULTIVITAMINS/MINERALS THERAP 1 TAB PO SCH (09:44)
[2022-06-18] MEDS: QUEtiapine FUMARATE 25 MG TAB PO SCH (09:44)
[2022-06-18] MEDS: DOCUSATE SODIUM 100MG CAPSULE PO SCH ×2 (09:44→20:00)
[2022-06-18] MEDS: SERTRALINE 100 MG TAB PO SCH (09:44)
[2022-06-18] MEDS: ATORVASTATIN 10 MG TAB PO SCH (09:44)
[2022-06-18] MEDS: DONEPEZIL 5 MG TAB PO SCH (09:44)
[2022-06-18] MEDS: LIDOCAINE 5% (LIDODERM) PATCH TD SCH (09:45)
[2022-06-18] MEDS: LEVEMIR (INSULIN DETEMIR) 1 UNITS/0.01ML SC SCH (09:46)
[2022-06-18] MEDS: INSULIN LISPRO (NovoLOG) PER UNIT SC SCH ×4 (09:47→20:00)
[2022-06-18 10:00] VITALS: BP 172/94
[2022-06-18] MEDS: QUEtiapine FUMARATE 50MG TAB PO SCH (19:59)
[2022-06-18] MEDS: PANTOPRAZOLE 40MG TAB (PROTONIX) PO SCH (20:00)
[2022-06-18] MEDS: RAMELTEON 8 MG TAB (ROZEREM) PO PRN (20:00)
[2022-06-18] MEDS: ENOXAPARIN 40MG/0.4ML SYRINGE (J1650 PER 10MG) SC SCH (20:00)
[2022-06-18] MEDS: ACETAMINOPHEN 650MG ER TAB (TYLENOL ARTHRITIS) PO PRN (20:00)
[2022-06-19 06:00] VITALS: BP 157/87
[2022-06-19] MEDS: INSULIN LISPRO (NovoLOG) PER UNIT SC SCH ×4 (07:30→21:00)
[2022-06-19] MEDS: SERTRALINE 100 MG TAB PO SCH (09:14)
[2022-06-19] MEDS: DONEPEZIL 5 MG TAB PO SCH (09:14)
[2022-06-19] MEDS: DOCUSATE SODIUM 100MG CAPSULE PO SCH ×2 (09:14→20:26)
[2022-06-19] MEDS: MULTIVITAMINS/MINERALS THERAP 1 TAB PO SCH (09:14)
[2022-06-19] MEDS: ATORVASTATIN 10 MG TAB PO SCH (09:14)
[2022-06-19] MEDS: lisinopriL 40MG TAB PO SCH (09:15)
[2022-06-19] MEDS: LEVEMIR (INSULIN DETEMIR) 1 UNITS/0.01ML SC SCH (09:15)
[2022-06-19] MEDS: LIDOCAINE 5% (LIDODERM) PATCH TD SCH (09:15)
[2022-06-19] MEDS: QUEtiapine FUMARATE 25 MG TAB PO SCH (09:15)
[2022-06-19] MEDS: ENOXAPARIN 40MG/0.4ML SYRINGE (J1650 PER 10MG) SC SCH (20:26)
[2022-06-19] MEDS: RAMELTEON 8 MG TAB (ROZEREM) PO PRN (20:26)
[2022-06-19] MEDS: PANTOPRAZOLE 40MG TAB (PROTONIX) PO SCH (20:26)
[2022-06-19] MEDS: QUEtiapine FUMARATE 50MG TAB PO SCH (20:26)
[2022-06-19] MEDS: ACETAMINOPHEN 650MG ER TAB (TYLENOL ARTHRITIS) PO PRN (20:26)
[2022-06-20 06:00] VITALS: BP 134/69
[2022-06-20] MEDS: LEVEMIR (INSULIN DETEMIR) 1 UNITS/0.01ML SC SCH (08:50)
[2022-06-20] MEDS: QUEtiapine FUMARATE 25 MG TAB PO SCH (08:51)
[2022-06-20] MEDS: lisinopriL 40MG TAB PO SCH (08:51)
[2022-06-20] MEDS: DONEPEZIL 5 MG TAB PO SCH (08:51)
[2022-06-20] MEDS: SERTRALINE 100 MG TAB PO SCH (08:51)
[2022-06-20] MEDS: DOCUSATE SODIUM 100MG CAPSULE PO SCH ×2 (08:51→20:17)
[2022-06-20] MEDS: LIDOCAINE 5% (LIDODERM) PATCH TD SCH (08:51)
[2022-06-20] MEDS: MULTIVITAMINS/MINERALS THERAP 1 TAB PO SCH (08:51)
[2022-06-20] MEDS: ATORVASTATIN 10 MG TAB PO SCH (08:51)
[2022-06-20] MEDS: INSULIN LISPRO (NovoLOG) PER UNIT SC SCH ×4 (08:51→21:00)
[2022-06-20] MEDS: QUEtiapine FUMARATE 50MG TAB PO SCH (20:17)
[2022-06-20] MEDS: PANTOPRAZOLE 40MG TAB (PROTONIX) PO SCH (20:17)
[2022-06-20] MEDS: RAMELTEON 8 MG TAB (ROZEREM) PO PRN (20:17)
[2022-06-20] MEDS: ENOXAPARIN 40MG/0.4ML SYRINGE (J1650 PER 10MG) SC SCH (20:17)
[2022-06-20] MEDS: ACETAMINOPHEN 650MG ER TAB (TYLENOL ARTHRITIS) PO PRN (20:17)
[2022-06-21 05:07] VITALS: BP 168/102
[2022-06-21] MEDS: QUEtiapine FUMARATE 25 MG TAB PO SCH (07:46)
[2022-06-21] MEDS: SERTRALINE 100 MG TAB PO SCH (07:46)
[2022-06-21] MEDS: ATORVASTATIN 10 MG TAB PO SCH (07:47)
[2022-06-21] MEDS: DOCUSATE SODIUM 100MG CAPSULE PO SCH ×2 (07:47→19:57)
[2022-06-21] MEDS: lisinopriL 40MG TAB PO SCH (07:47)
[2022-06-21] MEDS: MULTIVITAMINS/MINERALS THERAP 1 TAB PO SCH (07:47)
[2022-06-21] MEDS: DONEPEZIL 5 MG TAB PO SCH (07:47)
[2022-06-21] MEDS: INSULIN LISPRO (NovoLOG) PER UNIT SC SCH ×4 (07:48→21:00)
[2022-06-21] MEDS: LEVEMIR (INSULIN DETEMIR) 1 UNITS/0.01ML SC SCH (07:48)
[2022-06-21] MEDS: LIDOCAINE 5% (LIDODERM) PATCH TD SCH (07:48)
[2022-06-21 13:41] VITALS: BP 158/86
[2022-06-21] MEDS: RAMELTEON 8 MG TAB (ROZEREM) PO PRN (19:56)
[2022-06-21] MEDS: PANTOPRAZOLE 40MG TAB (PROTONIX) PO SCH (19:57)
[2022-06-21] MEDS: QUEtiapine FUMARATE 50MG TAB PO SCH (19:57)
[2022-06-21] MEDS: ACETAMINOPHEN 650MG ER TAB (TYLENOL ARTHRITIS) PO PRN (19:57)
[2022-06-21] MEDS: ENOXAPARIN 40MG/0.4ML SYRINGE (J1650 PER 10MG) SC SCH (19:58)
[2022-06-22 05:15] VITALS: BP 168/97
[2022-06-22] MEDS: MULTIVITAMINS/MINERALS THERAP 1 TAB PO SCH (08:24)
[2022-06-22] MEDS: SERTRALINE 100 MG TAB PO SCH (08:24)
[2022-06-22] MEDS: DONEPEZIL 5 MG TAB PO SCH (08:24)
[2022-06-22] MEDS: INSULIN LISPRO (NovoLOG) PER UNIT SC SCH ×4 (08:24→20:18)
[2022-06-22] MEDS: LEVEMIR (INSULIN DETEMIR) 1 UNITS/0.01ML SC SCH (08:24)
[2022-06-22] MEDS: DOCUSATE SODIUM 100MG CAPSULE PO SCH ×2 (08:24→20:18)
[2022-06-22] MEDS: QUEtiapine FUMARATE 25 MG TAB PO SCH (08:25)
[2022-06-22] MEDS: LIDOCAINE 5% (LIDODERM) PATCH TD SCH (08:25)
[2022-06-22] MEDS: ATORVASTATIN 10 MG TAB PO SCH (08:25)
[2022-06-22] MEDS: lisinopriL 40MG TAB PO SCH (08:25)
[2022-06-22 15:30] LABS: HEMOGLOBIN 12.1 g/dl (13.5-17.5); MEAN CORPUSCULAR HEMOGLOBIN 27.7 pg (27.0-33.0); MEAN CORPUSCULAR HGB CONC 31.8 g/dl (32.0-36.5); PLATELET COUNT, AUTOMATED 162 10^3/uL (150-450); RED BLOOD COUNT 4.37 10^6/uL (4.30-6.10); WHITE BLOOD COUNT 8.1 10^3/uL (4.0-10.0)
[2022-06-22] MEDS: ENOXAPARIN 40MG/0.4ML SYRINGE (J1650 PER 10MG) SC SCH (20:18)
[2022-06-22] MEDS: RAMELTEON 8 MG TAB (ROZEREM) PO PRN (20:18)
[2022-06-22] MEDS: QUEtiapine FUMARATE 50MG TAB PO SCH (20:18)
[2022-06-22] MEDS: ACETAMINOPHEN 650MG ER TAB (TYLENOL ARTHRITIS) PO PRN (20:18)
[2022-06-22] MEDS: PANTOPRAZOLE 40MG TAB (PROTONIX) PO SCH (20:18)
[2022-06-23 06:00] VITALS: BP 124/76
[2022-06-23] MEDS: lisinopriL 40MG TAB PO SCH (08:22)
[2022-06-23] MEDS: ATORVASTATIN 10 MG TAB PO SCH (08:22)
[2022-06-23] MEDS: SERTRALINE 100 MG TAB PO SCH (08:22)
[2022-06-23] MEDS: DOCUSATE SODIUM 100MG CAPSULE PO SCH (08:22)
[2022-06-23] MEDS: DONEPEZIL 5 MG TAB PO SCH (08:22)
[2022-06-23] MEDS: MULTIVITAMINS/MINERALS THERAP 1 TAB PO SCH (08:22)
[2022-06-23] MEDS: QUEtiapine FUMARATE 25 MG TAB PO SCH (08:22)
[2022-06-23] MEDS: LIDOCAINE 5% (LIDODERM) PATCH TD SCH (08:23)
[2022-06-23] MEDS: INSULIN LISPRO (NovoLOG) PER UNIT SC SCH ×2 (08:23→12:32)
[2022-06-23] MEDS: LEVEMIR (INSULIN DETEMIR) 1 UNITS/0.01ML SC SCH (08:23)
[2022-06-23] MEDS ORDERED: QUET50TA4 PO (12:47)
[2022-06-23] MEDS ORDERED: QUET1TAB17 PO (12:47)
[2022-06-23] MEDS ORDERED: PANT40TA29 PO (12:47)
== END 2022-06-23 13:35 | DRG 57 ==
LOC: M ED 16:23 → M ED INP 16:24 → M MS5PR 05-12 13:45 → OBSVTOIN 05-13 09:19
PROVIDERS: ADMIT Internal Medicine; ATTEND Internal Medicine
DX: G30.9 Alzheimer's disease, unspecified (principal); F32.A Depression, unspecified; J45.909 Unspecified asthma, uncomplicated; E11.9 Type 2 diabetes mellitus without complications; K21.00 Gastro-esophageal reflux disease with esophagitis, without bleeding; E78.5 Hyperlipidemia, unspecified; M19.90 Unspecified osteoarthritis, unspecified site; R74.8 Abnormal levels of other serum enzymes; Z66 Do not resuscitate; I10 Essential (primary) hypertension; D64.9 Anemia, unspecified; K29.70 Gastritis, unspecified, without bleeding; F02.80 Dementia in other diseases classified elsewhere, unspecified severity, without behavioral disturbance, psychotic disturbance, mood disturbance, and anxiety; R54 Age-related physical debility; Z79.899 Other long term (current) drug therapy; Z79.82 Long term (current) use of aspirin; Z96.653 Presence of artificial knee joint, bilateral

== ENCOUNTER → 2022-08-01 | Outpatient (REF) | payer MEDICARE, OTHER, MEDICAID ==
[~2022-08-01] MED LIST changes: +NORV5TAB PO; +PANT40TA29 PO; +QUET1TAB17 PO; +QUET50TA4 PO
[2022-08-01 09:43] LABS: ALBUMIN 3.4 G/DL (3.2-5.2); ALKALINE PHOSPHATASE 180 U/L (46-116); ALT/SGPT 20 U/L (7.0-40); AST/SGOT 20 U/L (<34); BILIRUBIN,TOTAL 0.4 MG/DL (0.3-1.2); BLOOD UREA NITROGEN 33 MG/DL (9-23); CALCIUM LEVEL 8.9 MG/DL (8.3-10.6); CARBON DIOXIDE LEVEL 23 MMOL/L (20-31); CHLORIDE LEVEL 107 MMOL/L (98-107); CHOLESTEROL LEVEL 151 MG/DL (<200); CHOLESTEROL RISK RATIO 3.19 (<5); GLOMERULAR FILTRATION RATE > 60.0 (>42); GLUCOSE, FASTING 289 MG/DL (74-106); HDL CHOLESTEROL 47.3 MG/DL (>40); LDL CHOLESTEROL 85.5 MG/DL (<100); NON-HDL-C 104 MG/DL; POTASSIUM SERUM 4.9 MMOL/L (3.5-5.1); SODIUM LEVEL 138 MMOL/L (136-145); TOTAL PROTEIN 6.2 G/DL (5.7-8.2); TRIGLYCERIDES LEVEL 91 MG/DL (<150)
[2022-08-01 10:59] LABS: HEMOGLOBIN A1c 8.6 % (4.0-6.0)
== END ==
LOC: SKLAB8 07:54
PROVIDERS: ATTEND Internal Medicine
DX: E11.9 Type 2 diabetes mellitus without complications (principal); E78.5 Hyperlipidemia, unspecified

== ENCOUNTER → 2022-10-06 | Outpatient (REF) | payer MEDICARE, MEDICAID ==
[2022-10-06 08:31] LABS: APPEARANCE, URINE CLEAR (CLEAR); BACTERIA, URINE AUTO NEGATIVE (NEGATIVE); BILIRUBIN, URINE AUTO NEGATIVE (NEGATIVE); BLOOD, URINE BLOOD NEGATIVE (NEGATIVE); COLOR, URINE YELLOW (YELLOW); GLUCOSE, URINE (UA) AUTO 2+ mg/dL (NEGATIVE); KETONE, URINE AUTO NEGATIVE (NEGATIVE); LEUKOCYTE ESTERASE, URINE AUTO NEGATIVE (NEGATIVE); MUCUS, URINE SMALL (NEGATIVE); NITRITE, URINE AUTO NEGATIVE (NEGATIVE); PROTEIN, URINE AUTO 2+ mg/dL (NEGATIVE); RBC, URINE AUTO 1 /HPF (0-3); SPECIFIC GRAVITY URINE AUTO 1.019 (1.002-1.035); SQUAMOUS EPITHELIAL CELL UR AU 0 /HPF (0-6); UROBILINOGEN, URINE AUTO 0.2 mg/dL (0.0-2.0); WBC, URINE AUTO 0 /HPF (0-3)
== END ==
LOC: SKLAB8 07:00
PROVIDERS: ATTEND Internal Medicine
DX: R35.0 Frequency of micturition (principal)

== ENCOUNTER → 2022-10-27 | Outpatient (REF) | payer MEDICARE, MEDICAID ==
[2022-10-27 09:16] LABS: BLOOD UREA NITROGEN 28 MG/DL (9-23); CARBON DIOXIDE LEVEL 28 MMOL/L (20-31); CHLORIDE LEVEL 104 MMOL/L (98-107); CREATININE FOR GFR 1.02 MG/DL (0.70-1.30); GLOMERULAR FILTRATION RATE > 60.0 (>42); GLUCOSE, FASTING 243 MG/DL (74-106); POTASSIUM SERUM 4.6 MMOL/L (3.5-5.1); SODIUM LEVEL 138 MMOL/L (136-145)
[2022-10-27 09:31] LABS: HEMOGLOBIN A1c 10.9 % (4.0-6.0)
== END ==
LOC: SKLAB8 07:00
PROVIDERS: ATTEND Internal Medicine
DX: E11.9 Type 2 diabetes mellitus without complications (principal)

== ENCOUNTER → 2022-11-13 | Outpatient (REF) | payer MEDICAID | LOC: SKLAB8 07:00 | PROVIDERS: ATTEND Internal Medicine | DX: M17.11 Unilateral primary osteoarthritis, right knee (principal) ==

== ENCOUNTER → 2022-11-28 | Outpatient (REF) | payer MEDICARE, MEDICAID ==
[2022-11-28 09:50] LABS: HEMATOCRIT 43.1 % (42.0-52.0); HEMOGLOBIN 13.8 g/dl (13.5-17.5); MEAN CORPUSCULAR HEMOGLOBIN 26.8 pg (27.0-33.0); MEAN CORPUSCULAR VOLUME 83.7 fl (80.0-96.0); PLATELET COUNT, AUTOMATED 135 10^3/uL (150-450); RED BLOOD COUNT 5.15 10^6/uL (4.30-6.10); WHITE BLOOD COUNT 6.4 10^3/uL (4.0-10.0)
[2022-11-28 10:15] LABS: ALBUMIN 3.3 G/DL (3.2-5.2); ALKALINE PHOSPHATASE 152 U/L (46-116); ALT/SGPT 21 U/L (7.0-40); AST/SGOT 25 U/L (<34); BILIRUBIN,TOTAL 0.6 MG/DL (0.3-1.2); BLOOD UREA NITROGEN 17 MG/DL (9-23); CALCIUM LEVEL 8.9 MG/DL (8.3-10.6); CARBON DIOXIDE LEVEL 27 MMOL/L (20-31); CHLORIDE LEVEL 103 MMOL/L (98-107); CREATININE FOR GFR 0.99 MG/DL (0.70-1.30); GLOMERULAR FILTRATION RATE > 60.0 (>42); GLUCOSE, FASTING 280 MG/DL (74-106); SODIUM LEVEL 138 MMOL/L (136-145); TOTAL PROTEIN 6.5 G/DL (5.7-8.2)
== END ==
LOC: SKLAB8 07:00
PROVIDERS: ATTEND Internal Medicine
DX: U07.1 COVID-19 (principal); Z79.899 Other long term (current) drug therapy

== ENCOUNTER → 2022-12-30 | Outpatient (REF) | payer MEDICARE, MEDICAID | LOC: SKLAB8 08:28 | PROVIDERS: ATTEND Internal Medicine | DX: M25.512 Pain in left shoulder (principal); W19.XXXA Unspecified fall, initial encounter; Y92.129 Unspecified place in nursing home as the place of occurrence of the external cause; Y93.9 Activity, unspecified ==

== ENCOUNTER → 2023-02-22 | Outpatient (REF) | payer MEDICARE, MEDICAID | LOC: SKLAB8 07:00 | PROVIDERS: ATTEND Internal Medicine | DX: R73.09 Other abnormal glucose (principal) ==

== ENCOUNTER → 2023-06-15 | Outpatient (REF) | payer MEDICARE, MEDICAID ==
[2023-06-15 10:05] LABS: HEMATOCRIT 45.2 % (42.0-52.0); HEMOGLOBIN 14.2 g/dl (13.5-17.5); MEAN CORPUSCULAR HEMOGLOBIN 26.6 pg (27.0-33.0); MEAN CORPUSCULAR HGB CONC 31.4 g/dl (32.0-36.5); MEAN CORPUSCULAR VOLUME 84.8 fl (80.0-96.0); PLATELET COUNT, AUTOMATED 234 10^3/uL (150-450); RED BLOOD COUNT 5.33 10^6/uL (4.30-6.10); WHITE BLOOD COUNT 9.8 10^3/uL (4.0-10.0)
[2023-06-15 11:22] LABS: BLOOD UREA NITROGEN 16 MG/DL (9-23); CALCIUM LEVEL 8.9 MG/DL (8.3-10.6); CARBON DIOXIDE LEVEL 28 MMOL/L (20-31); CHLORIDE LEVEL 105 MMOL/L (98-107); CREATININE FOR GFR 1.18 MG/DL (0.70-1.30); GLOMERULAR FILTRATION RATE > 60.0 (>42); GLUCOSE, FASTING 241 MG/DL (74-106); POTASSIUM SERUM 4.5 MMOL/L (3.5-5.1); SODIUM LEVEL 139 MMOL/L (136-145)
== END ==
LOC: SKLAB8 09:23
PROVIDERS: ATTEND Internal Medicine
DX: R41.82 Altered mental status, unspecified (principal)

== ENCOUNTER → 2023-07-27 | Outpatient (REF) | payer MEDICARE, MEDICAID ==
[2023-07-27 10:03] LABS: BLOOD UREA NITROGEN 16 MG/DL (9-23); CALCIUM LEVEL 9.3 MG/DL (8.3-10.6); CARBON DIOXIDE LEVEL 28 MMOL/L (20-31); CHLORIDE LEVEL 105 MMOL/L (98-107); CREATININE FOR GFR 1.15 MG/DL (0.70-1.30); GLOMERULAR FILTRATION RATE > 60.0 (>42); GLUCOSE, FASTING 170 MG/DL (74-106); POTASSIUM SERUM 4.2 MMOL/L (3.5-5.1); SODIUM LEVEL 138 MMOL/L (136-145)
== END ==
LOC: SKLAB8 06:55
PROVIDERS: ATTEND Internal Medicine
DX: E11.9 Type 2 diabetes mellitus without complications (principal)

== ENCOUNTER → 2023-09-14 | Outpatient (REF) | payer MEDICARE, MEDICAID | LOC: SKLAB8 07:24 | PROVIDERS: ATTEND Internal Medicine | DX: Z53.8 Procedure and treatment not carried out for other reasons (principal) ==

== ENCOUNTER → 2023-09-14 | Outpatient (CLI) | payer MEDICARE, MEDICAID | LOC: M RAD 09:29 | PROVIDERS: ATTEND Internal Medicine | DX: M25.551 Pain in right hip (principal); M25.552 Pain in left hip ==

== ENCOUNTER → 2023-10-26 | Outpatient (REF) | payer MEDICARE, MEDICAID ==
[2023-10-26 11:35] LABS: HEMOGLOBIN A1c 8.4 % (4.0-6.0)
[2023-10-26 11:48] LABS: BLOOD UREA NITROGEN 13 MG/DL (9-23); CALCIUM LEVEL 8.7 MG/DL (8.3-10.6); CARBON DIOXIDE LEVEL 27 MMOL/L (20-31); CHLORIDE LEVEL 105 MMOL/L (98-107); CREATININE FOR GFR 0.98 MG/DL (0.70-1.30); GLOMERULAR FILTRATION RATE > 60.0 (>35); GLUCOSE, FASTING 260 MG/DL (74-106); POTASSIUM SERUM 4.5 MMOL/L (3.5-5.1); SODIUM LEVEL 141 MMOL/L (136-145)
== END ==
LOC: SKLAB8 06:43
PROVIDERS: ATTEND Internal Medicine
DX: F03.90 Unspecified dementia, unspecified severity, without behavioral disturbance, psychotic disturbance, mood disturbance, and anxiety (principal); Z79.899 Other long term (current) drug therapy

== ENCOUNTER → 2023-12-16 | Outpatient (REF) | payer MEDICARE, MEDICAID ==
[2023-12-16 17:34] LABS: BLOOD UREA NITROGEN 18 MG/DL (9-23); CARBON DIOXIDE LEVEL 29 MMOL/L (20-31); CHLORIDE LEVEL 104 MMOL/L (98-107); CREATININE FOR GFR 1.02 MG/DL (0.70-1.30); GLOMERULAR FILTRATION RATE > 60.0 (>35); GLUCOSE, FASTING 272 MG/DL (74-106); POTASSIUM SERUM 4.4 MMOL/L (3.5-5.1); SODIUM LEVEL 138 MMOL/L (136-145)
[2023-12-16 19:26] LABS: HEMATOCRIT 40.3 % (42.0-52.0); HEMOGLOBIN 13.3 g/dl (13.5-17.5); MEAN CORPUSCULAR HEMOGLOBIN 27.4 pg (27.0-33.0); MEAN CORPUSCULAR VOLUME 83.1 fl (80.0-96.0); PLATELET COUNT, AUTOMATED 185 10^3/uL (150-450); RED BLOOD COUNT 4.85 10^6/uL (4.30-6.10)
== END ==
LOC: SKLAB8 07:00
PROVIDERS: ATTEND Internal Medicine
DX: Z91.81 History of falling (principal)

== ENCOUNTER 2023-12-19 12:47 | Emergency (ER) | payer MEDICARE, MEDICAID ==
[2023-12-19 13:07] VITALS: TEMP 97.8
[2023-12-19 14:51] LABS: BASO % 0.1 % (0.0-1.0); EOS # 0.1 10^3/uL (0.0-0.5); EOS % 1.2 % (0.0-3.0); HEMATOCRIT 40.4 % (42.0-52.0); HEMOGLOBIN 13.4 g/dl (13.5-17.5); LYMPH # 0.7 10^3/uL (1.5-5.0); LYMPH % 7.8 % (24.0-44.0); MEAN CORPUSCULAR HEMOGLOBIN 27.5 pg (27.0-33.0); MEAN CORPUSCULAR HGB CONC 33.2 g/dl (32.0-36.5); MEAN CORPUSCULAR VOLUME 82.8 fl (80.0-96.0); MONO # 0.7 10^3/uL (0.0-0.8); MONO % 8.3 % (2.0-8.0); NEUTROPHILS # 7.3 10^3/uL (1.5-8.5); NEUTROPHILS % 82.4 % (36.0-66.0); PLATELET COUNT, AUTOMATED 166 10^3/uL (150-450); RED BLOOD COUNT 4.88 10^6/uL (4.30-6.10); WHITE BLOOD COUNT 8.9 10^3/uL (4.0-10.0)
[2023-12-19 15:19] LABS: ALBUMIN 3.4 G/DL (3.2-5.2); ALKALINE PHOSPHATASE 195 U/L (46-116); ALT/SGPT 19 U/L (7.0-40); AST/SGOT 14 U/L (<34); BILIRUBIN,DIRECT 0.2 MG/DL (<0.4); BILIRUBIN,TOTAL 0.5 MG/DL (0.3-1.2); BLOOD UREA NITROGEN 14 MG/DL (9-23); CALCIUM LEVEL 8.8 MG/DL (8.3-10.6); CARBON DIOXIDE LEVEL 27 MMOL/L (20-31); CHLORIDE LEVEL 101 MMOL/L (98-107); CREATININE FOR GFR 0.79 MG/DL (0.70-1.30); GLOMERULAR FILTRATION RATE > 60.0 (>35); GLUCOSE, FASTING 381 MG/DL (74-106); POTASSIUM SERUM 4.3 MMOL/L (3.5-5.1); SODIUM LEVEL 134 MMOL/L (136-145); TOTAL PROTEIN 6.5 G/DL (5.7-8.2)
[2023-12-19 16:12] VITALS: BP 192/80; O2SAT 97
== END 2023-12-19 16:27 | disposition short-term general hospital (02) ==
LOC: M ED 12:47 → EDBD 12:47 → M ED 16:27
DX: S12.000A Unspecified displaced fracture of first cervical vertebra, initial encounter for closed fracture (principal); W01.0XXA Fall on same level from slipping, tripping and stumbling without subsequent striking against object, initial encounter; R91.1 Solitary pulmonary nodule; M50.322 Other cervical disc degeneration at C5-C6 level; M50.323 Other cervical disc degeneration at C6-C7 level; F03.90 Unspecified dementia, unspecified severity, without behavioral disturbance, psychotic disturbance, mood disturbance, and anxiety; E11.9 Type 2 diabetes mellitus without complications; I10 Essential (primary) hypertension; J45.909 Unspecified asthma, uncomplicated; K21.9 Gastro-esophageal reflux disease without esophagitis; F32.9 Major depressive disorder, single episode, unspecified; Z79.82 Long term (current) use of aspirin; Z79.02 Long term (current) use of antithrombotics/antiplatelets; Z79.811 Long term (current) use of aromatase inhibitors; Z79.4 Long term (current) use of insulin; Z79.899 Other long term (current) drug therapy; Y92.9 Unspecified place or not applicable; Y93.89 Activity, other specified; Y99.9 Unspecified external cause status

== ENCOUNTER → 2023-12-19 | Outpatient (CLI) | payer MEDICARE, MEDICAID | LOC: M RAD 10:37 | PROVIDERS: ATTEND Nurse Practitioner | DX: M54.2 Cervicalgia (principal) ==

== ENCOUNTER 2023-12-26 19:51 | Emergency (ER) | payer MEDICARE, MEDICAID ==
[2023-12-26 20:03] VITALS: BP 140/66; TEMP 98.2; O2SAT 99
== END 2023-12-26 20:38 | disposition short-term general hospital (02) ==
LOC: M ED 19:51
DX: S12.030A Displaced posterior arch fracture of first cervical vertebra, initial encounter for closed fracture (principal); S12.110A Anterior displaced Type II dens fracture, initial encounter for closed fracture; W19.XXXA Unspecified fall, initial encounter; M48.02 Spinal stenosis, cervical region; M50.221 Other cervical disc displacement at C4-C5 level; M50.223 Other cervical disc displacement at C6-C7 level; M50.23 Other cervical disc displacement, cervicothoracic region; Y92.009 Unspecified place in unspecified non-institutional (private) residence as the place of occurrence of the external cause; Y93.89 Activity, other specified; Y99.9 Unspecified external cause status; Z79.82 Long term (current) use of aspirin; Z79.02 Long term (current) use of antithrombotics/antiplatelets; Z79.811 Long term (current) use of aromatase inhibitors; Z79.899 Other long term (current) drug therapy

== ENCOUNTER → 2023-12-26 | Outpatient (CLI) | payer MEDICARE, MEDICAID | LOC: M RAD 14:31 | PROVIDERS: ATTEND Nurse Practitioner | DX: M54.2 Cervicalgia (principal); M48.02 Spinal stenosis, cervical region ==

== ENCOUNTER → 2024-01-04 | Outpatient (REF) | payer MEDICARE, MEDICAID ==
[2024-01-04 12:40] LABS: HEMATOCRIT 41.5 % (42.0-52.0); HEMOGLOBIN 13.3 g/dl (13.5-17.5); MEAN CORPUSCULAR VOLUME 84.2 fl (80.0-96.0); PLATELET COUNT, AUTOMATED 279 10^3/uL (150-450); RED BLOOD COUNT 4.93 10^6/uL (4.30-6.10); WHITE BLOOD COUNT 10.3 10^3/uL (4.0-10.0)
[2024-01-04 13:15] LABS: BLOOD UREA NITROGEN 33 MG/DL (9-23); CALCIUM LEVEL 8.7 MG/DL (8.3-10.6); CARBON DIOXIDE LEVEL 28 MMOL/L (20-31); CHLORIDE LEVEL 107 MMOL/L (98-107); CREATININE FOR GFR 1.22 MG/DL (0.70-1.30); GLOMERULAR FILTRATION RATE > 60.0 (>35); GLUCOSE, FASTING 305 MG/DL (74-106); POTASSIUM SERUM 4.9 MMOL/L (3.5-5.1); SODIUM LEVEL 137 MMOL/L (136-145)
== END ==
LOC: SKLAB8 07:06
PROVIDERS: ATTEND Internal Medicine
DX: E11.9 Type 2 diabetes mellitus without complications (principal)

== ENCOUNTER → 2024-01-15 | Outpatient (REF) | LOC: SKLAB8 17:21 | PROVIDERS: ATTEND Internal Medicine | DX: E11.65 Type 2 diabetes mellitus with hyperglycemia (principal) ==

== ENCOUNTER → 2024-01-18 | Outpatient (REF) | payer MEDICARE, MEDICAID | LOC: SKLAB8 16:58 | PROVIDERS: ATTEND Nurse Practitioner | DX: E11.65 Type 2 diabetes mellitus with hyperglycemia (principal) ==